=== PATIENT | male | born 1955 | race Caucasian/White ===

== ENCOUNTER → 2021-05-31 07:44 | Outpatient (CLI) | payer MEDICARE, SELFPAY ==
[2021-06-01 02:05] LABS: SARS-CoV-2 RNA PCR Negative
== END ==
PROVIDERS: PCP Family Medicine; Visit Provider Family Medicine
DX: Z20.822 Contact with and (suspected) exposure to COVID-19 (principal)
CPT/HCPCS: C9803; U0003; U0005

== ENCOUNTER 2021-08-12 01:00 | Day surgery (SDC) | payer MEDICARE, SELFPAY ==
[2021-08-01 11:03] VITALS: BMI 35.4
--- NOTE | 2021-08-11 13:25 | WPDANESEPP ---
Anes - Eval Pre Procedure Procedure: Operation Date: 08/12/21 08:00 Proposed Procedures p Screening Colonoscopy - Shayne Howard MD Date/Time: 08/11/21 13:25 Pre Op Diagnosis: hx of colon polyps Patient Data Age: 66 Gender: M Height: 1.75 m Weight: 109 kg Allergies Allergy/AdvReac Type Severity Reaction Status Date / Time penicillin V Allergy Unknown Unknown Verified 08/01/21 10:59 Penicillins Allergy Unknown Dermatitis Verified 08/01/21 10:59 Home Medications Medication Instructions Recorded Confirmed Type amlodipine 5 mg tablet 5 mg PO DAILY #90 tablet 11/17/20 08/01/21 Rx carvedilol 25 mg tablet 25 mg PO Q12H #180 tablet 11/17/20 08/01/21 Rx blood sugar diagnostic #100 ea 12/16/20 06/13/21 Rx blood-glucose meter #1 ea 12/16/20 06/13/21 Rx lancets 33 gauge #100 ea 12/16/20 06/13/21 Rx lancing device with lancets kit #1 ea 12/16/20 06/13/21 Rx atorvastatin 20 mg tablet 20 mg PO DAILY #90 tablet 03/08/21 08/01/21 Rx fluticasone propionate 50 2 spray INTRANASAL BID #16 ml 05/17/21 08/01/21 Rx mcg/actuation nasal spray,suspension irbesartan 300 1 tablet PO DAILY #90 tablet 06/06/21 08/01/21 Rx mg-hydrochlorothiazide 12.5 mg tablet metformin 500 mg tablet,extended 1,000 mg PO BID #360 tablet 06/06/21 08/01/21 Rx release 24 hr aspirin [Aspirin Low Dose] 81 mg PO DAILY 08/01/21 08/01/21 History multivit with min-folic acid 0.4 tablet PO DAILY 08/01/21 08/01/21 History [Adult One Daily Multivitamin] Patient hx anesthesia problems: none Family hx anesthesia problems: none Results Review: All pre-operative results and documents have been reviewed as part of the pre-operative evaluation. 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 pectoris Edema, peripheral Encounter for prostate cancer screening Encounter for wellness examination in adult Essential (primary) hypertension Exposure to COVID-19 virus Hypogonadism male Impacted cerumen, bilateral Lateral epicondylitis Mixed hyperlipidemia Nocturia Obstructive sleep apnea on CPAP Seasonal allergic rhinitis Seborrhea Tension headache, chronic Surgical History Surgical History History of heart artery stent Family History Family History Mother Hypertension, Onset Age: 91 Family history of cardiovascular disease Father Patient's father is , Onset Age: 87 Social History Social History (Updated 06/13/21 @ 13:51 by Elza Munson MA) Smoking status: Former smoker Tobacco type: cigarettes Alcohol intake: current Alcohol use details: rarely Substance use: never Substance use type: does not use Living arrangements: with family Spiritual care concerns: No Exam Day of Procedure 08/11/21 13:25
[2021-08-12 06:50] VITALS: BP 141/67; PULSE 61; RESP 18; TEMP 36.7; O2SAT 99; BMI 34.3
[2021-08-12 07:12] LABS: Glucose Point of Care 158 mg/dl (65-105)
--- NOTE | 2021-08-12 07:12 | WPDANESEFPP ---
Anes - Eval Final PreProcedure Day of Procedure 08/12/21 07:12 Patient weight: obese Heart: regular rate and rhythm Lungs: clear to auscultation Airway: Mallampati scale class II Neurological: alert and oriented Last oral intake: >/= 8 hours ASA classification: III Emergent: no Anesthetic plan: proceed Anesthesia type and monitoring: general GIVS and standard monitoring Results Review: All pre-operative results and documents have been reviewed as part of the pre-operative evaluation. Informed Consent: The patient's anesthetic plan and its attendant risks and benefits were discussed with the patient/family/POA. Questions were solicited and answers provided to the satisfaction of the patient/family/POA.
--- NOTE | 2021-08-12 07:18 | WPDGICN ---
Assessment and Plan Assessment and plan (1) History of colon polyps: Code(s): Z86.010 - Personal history of colonic polyps Status: Acute Assessment and Plan: Patient has a history of adenomatous colon polyps. Plan is for surveillance colonoscopy now and at 5 year intervals in the future. Further recommendations may be given after endoscopy. GI Consult Note Consult date/time: 08/12/21 07:18 HPI: Thom Tse is a 66 year old male Presents for screening colonoscopy. Patient has a history of recurrent colon polyps on several previous colonoscopies. Most recent colonoscopy 2018 revealed adenomatous colon polyps. Patient reports that his current weight appetite and bowel movements are normal. He denies abdominal pain. He has had no bleeding. Family history is noncontributory. Review of Systems Review of Systems: All systems reviewed & are unremarkable except as noted in HPI and below PMFSH Past Medical History Medical History (Updated 08/12/21 @ 07:19 by Shayne Howard MD) Adenomatous colon polyp BMI 35.0-35.9,adult Chronic right-sided low back pain without sciatica Controlled diabetes mellitus, without long-term current use of insulin Coronary artery disease without angina pectoris Edema, peripheral Encounter for prostate cancer screening Encounter for wellness examination in adult Essential (primary) hypertension Exposure to COVID-19 virus Hypogonadism male Impacted cerumen, bilateral Lateral epicondylitis Mixed hyperlipidemia Nocturia Obstructive sleep apnea on CPAP Seasonal allergic rhinitis Seborrhea Tension headache, chronic Surgical History Surgical History History of heart artery stent Family History Family History Mother Hypertension, Onset Age: 91 Family history of cardiovascular disease Father Patient's father is , Onset Age: 87 Social History Social History (Updated 06/13/21 @ 13:51 by Elza Munson MA) Smoking status: Former smoker Tobacco type: cigarettes Alcohol intake: current Alcohol use details: rarely Substance use: never Substance use type: does not use Living arrangements: with family Spiritual care concerns: No Meds Home Medications and Allergies Home Medications Medication Instructions Recorded Confirmed Type amlodipine 5 mg tablet 5 mg PO DAILY #90 tablet 11/17/20 08/01/21 Rx carvedilol 25 mg tablet 25 mg PO Q12H #180 tablet 11/17/20 08/01/21 Rx blood sugar diagnostic #100 ea 12/16/20 06/13/21 Rx blood-glucose meter #1 ea 12/16/20 06/13/21 Rx lancets 33 gauge #100 ea 12/16/20 06/13/21 Rx lancing device with lancets kit #1 ea 12/16/20 06/13/21 Rx atorvastatin 20 mg tablet 20 mg PO DAILY #90 tablet 03/08/21 08/01/21 Rx fluticasone propionate 50 2 spray INTRANASAL BID #16 ml 05/17/21 08/01/21 Rx mcg/actuation nasal spray,suspension irbesartan 300 1 tablet PO DAILY #90 tablet 06/06/21 08/01/21 Rx mg-hydrochlorothiazide 12.5 mg tablet metformin 500 mg tablet,extended 1,000 mg PO BID #360 tablet 06/06/21 08/01/21 Rx release 24 hr aspirin [Aspirin Low Dose] 81 mg PO DAILY 08/01/21 08/01/21 History multivit with min-folic acid 0.4 tablet PO DAILY 08/01/21 08/01/21 History [Adult One Daily Multivitamin] Allergies Allergy/AdvReac Type Severity Reaction Status Date / Time penicillin V Allergy Unknown Unknown Verified 08/12/21 06:59 Penicillins Allergy Unknown Dermatitis Verified 08/12/21 06:59 Vital Signs Vital Signs - 24 hr 08/12/21 06:50 Temperature 98.1 F Pulse Rate 61 Respiratory Rate 18 Blood Pressure 141/67 H Pulse Oximetry 99 Exam Narrative: Physical exam reveals patient to be alert. Vital signs stable. HEENT exam unremarkable. Patient is anicteric. Lungs are clear to auscultation and percussion. Heart is without murmur or extra sounds
[2021-08-12] MEDS: LACTATED RINGERS 1,000 ML 150 ML IV CONT (07:21)
[2021-08-12 08:28] VITALS: BP 137/68; PULSE 58; RESP 17; O2SAT 95
[2021-08-12 08:38] VITALS: BP 135/73; PULSE 56; RESP 19; O2SAT 95
[2021-08-12 08:48] VITALS: BP 134/88; PULSE 55; RESP 14; O2SAT 96
== END 2021-08-12 09:03 | disposition home or self-care (01) ==
PROVIDERS: PCP Family Medicine; Visit Provider Internal Medicine Gastroenterology
PROC: 0DJD8ZZ Inspection of Lower Intestinal Tract, Via Natural or Artificial Opening Endoscopic (ICD-10-PCS; CPT 45378; principal; 2021-08-12 08:00)
DX: Z12.11 Encounter for screening for malignant neoplasm of colon (principal); D12.2 Benign neoplasm of ascending colon; K64.8 Other hemorrhoids; I25.10 Atherosclerotic heart disease of native coronary artery without angina pectoris; I10 Essential (primary) hypertension; E78.2 Mixed hyperlipidemia; E11.9 Type 2 diabetes mellitus without complications; G47.33 Obstructive sleep apnea (adult) (pediatric); Z95.5 Presence of coronary angioplasty implant and graft; Z87.891 Personal history of nicotine dependence; E66.9 Obesity, unspecified; Z68.34 Body mass index [BMI] 34.0-34.9, adult; Z79.84 Long term (current) use of oral hypoglycemic drugs
CPT/HCPCS: 45385; 45381; 82948; 88305; J2704; J7120

== ENCOUNTER 2021-09-21 08:55 | Outpatient (CLI) | payer MEDICARE, SELFPAY ==
--- NOTE | ~2021-09-21 | XR_ITS ---
EXAMINATION: XR foot LT min 3V EXAM DATE: 09/21/2021 09:16 INDICATION: M72.2 - Plantar fascial fibromatosis, heel pain left side. TECHNIQUE: Left foot dorsoplantar, lateral and oblique projections obtained and reviewed. There is n o prior study for comparison. FINDINGS: Left metatarsal bones unremarkable. There is small calcaneal spur inferiorly. No perioste al reaction or band of sclerosis to suggest subacute stress fracture. There are no acute fractures or dislocations identified. There is no subcutaneous gas. The soft tissue is unremarkable. There ar e no radiopaque foreign bodies. IMPRESSION: Small left calcaneal inferior spur. Reviewed, dictated and finalized at location B.
== END 2021-09-21 08:56 | disposition home or self-care (01) ==
PROVIDERS: PCP Family Medicine; Visit Provider Family Medicine
DX: M72.2 Plantar fascial fibromatosis (principal); M76.62 Achilles tendinitis, left leg; M77.32 Calcaneal spur, left foot
CPT/HCPCS: 73630

== ENCOUNTER 2022-01-13 00:59 | Day surgery (SDC) | payer MEDICARE, SELFPAY ==
[2021-12-27 15:12] VITALS: BMI 33.8
[2022-01-13 07:43] VITALS: BP 148/68; PULSE 56; RESP 18; TEMP 36.2; O2SAT 99; BMI 32.8
[2022-01-13] MEDS: LACTATED RINGERS 1,000 ML 150 ML IV CONT (07:53)
[2022-01-13 07:58] LABS: Glucose Point of Care 110 mg/dl (65-105)
--- NOTE | 2022-01-13 08:06 | WPDANESEPPF ---
Anes - Initial Pre Proc Eval Procedure: Operation Date: 01/13/22 09:00 Proposed Procedures p Screening Colonoscopy - Shayne Howard MD Date/Time: 01/13/22 08:06 Surgeon: Shayne Howard MD Pre Op Diagnosis: colon polyps Patient Data Age: 66 Gender: M Height: 1.75 m Weight: 101 kg Last Vital Signs Temp 97.1 F L 01/13/22 07:43 Pulse 56 L 01/13/22 07:43 Resp 18 01/13/22 07:43 BP 148/68 H 01/13/22 07:43 Pulse Ox 99 01/13/22 07:43 O2 Del Method Room Air 01/13/22 07:43 Allergies Allergy/AdvReac Type Severity Reaction Status Date / Time penicillin V Allergy Unknown Unknown Verified 01/13/22 07:41 Penicillins Allergy Unknown Dermatitis Verified 01/13/22 07:41 Home Medications Medication Instructions Recorded Confirmed Type lancing device with lancets kit #1 ea 12/16/20 01/13/22 Rx (hopscout Lancing Device kit) atorvastatin 20 mg tablet 20 mg PO DAILY #90 tabs 03/08/21 01/13/22 Rx irbesartan 300 1 tablet PO DAILY #90 tabs 06/06/21 01/13/22 Rx mg-hydrochlorothiazide 12.5 mg tablet metformin 500 mg tablet,extended 1,000 mg PO BID #360 tabs 06/06/21 01/13/22 Rx release 24 hr aspirin 81 mg tablet,delayed 81 mg PO DAILY 08/01/21 01/13/22 History release (Charles Low Dose Aspirin) multivitamin with minerals-folic 1 tablet PO DAILY 08/01/21 01/13/22 History acid 0.4 mg tablet amlodipine 5 mg tablet 5 mg PO DAILY #90 tabs 09/02/21 01/13/22 Rx blood sugar diagnostic (InkblazersTouch #100 ea 09/07/21 01/13/22 Rx Verio test strips) carvedilol 25 mg tablet 25 mg PO Q12H #180 tabs 09/07/21 01/13/22 Rx lancets 33 gauge ([employer] Avanza Delica #100 ea 09/07/21 01/13/22 Rx Plus Lancet) meloxicam 15 mg tablet 15 mg PO DAILY PRN pain #30 tabs 09/21/21 01/13/22 Rx blood-glucose meter (OneTouch #1 ea 12/26/21 01/13/22 Rx Verio Meter) empagliflozin 25 mg tablet 25 mg PO DAILY #90 tabs 12/26/21 01/13/22 Rx (Jardiance) fluticasone propionate 50 2 spray intranasal BID PRN Allergy 12/27/21 01/13/22 History mcg/actuation nasal Symptoms spray,suspension (Flonase Allergy Relief) terbinafine HCl 250 mg tablet 250 mg PO DAILY 12/27/21 01/13/22 History Laboratory Tests 01/13/22 07:55 POC Capillary Glucose 110 mg/dl H mg/dl (65-105) Patient hx anesthesia problems: none Family hx anesthesia problems: none Results Review: All pre-operative results and documents have been reviewed as part of the pre-operative evaluation. [facility] Past Medical History Medical History (Updated 12/26/21 @ 09:57 by Nelly Otero NP) Achilles tendinitis of left lower extremity Adenomatous colon polyp Repeat colonoscopy 08/12/2021 with 2 large polyps of the ascending colon with recheck in 4 months with colonoscopy BMI 33.0-33.9,adult BMI 35.0-35.9,adult Chronic right-sided low back pain without sciatica Chronic sinusitis Controlled diabetes mellitus, without long-term current use of insulin Glucose 122 with hemoglobin A1c 6.4 on 11/28/2021. Coronary artery disease without angina pectoris Edema, peripheral Encounter for prostate cancer screening Encounter for wellness examination in adult Essential (primary) hypertension Exposure to COVID-19 virus Hypogonadism male Impacted cerumen, bilateral Lateral epicondylitis Mixed hyperlipidemia Total cholesterol 105, triglycerides 108, HDL 39, LDL 47 on 11/28/2021. Nocturia Obesity (BMI 30-39.9) Obstructive sleep apnea on CPAP Otitis externa of left ear Otitis externa, fungal, left ear Plantar fasciitis of left foot X-ray 09/21/2021 unremarkable except for small inferior calcaneal spur. PND (post-nasal drip) Seasonal allergic rhinitis Seborrhea Tension headache, chronic Surgical History Surgical History History of heart artery stent Family History Family History Mother Hypertension, Onset Age: 91 Family histo
--- NOTE | 2022-01-13 08:20 | PM.IMHP ---
H&P: HPI History of Present Illness Date/Time: 01/13/22 08:20 Chief Complaint: Colon polyps Narrative: this is a 66-year-old white male patient with a history of colon polyps in the past. Patient was found to have large sessile ascending colon polyp that was only partially removed at time of last endoscopy. Patient presents today for follow-up colonoscopy in removal of the remainder of this colon polyp patient's current weight appetite and bowel movements are normal. He denies abdominal pain. He has had no bleeding. Family history noncontributory. Review of Systems Review of Systems: Review of systems noncontributory. [facility] Past Medical History Medical History (Updated 12/26/21 @ 09:57 by Nelly Otero NP) Achilles tendinitis of left lower extremity Adenomatous colon polyp Repeat colonoscopy 08/12/2021 with 2 large polyps of the ascending colon with recheck in 4 months with colonoscopy BMI 33.0-33.9,adult BMI 35.0-35.9,adult Chronic right-sided low back pain without sciatica Chronic sinusitis Controlled diabetes mellitus, without long-term current use of insulin Glucose 122 with hemoglobin A1c 6.4 on 11/28/2021. Coronary artery disease without angina pectoris Edema, peripheral Encounter for prostate cancer screening Encounter for wellness examination in adult Essential (primary) hypertension Exposure to COVID-19 virus Hypogonadism male Impacted cerumen, bilateral Lateral epicondylitis Mixed hyperlipidemia Total cholesterol 105, triglycerides 108, HDL 39, LDL 47 on 11/28/2021. Nocturia Obesity (BMI 30-39.9) Obstructive sleep apnea on CPAP Otitis externa of left ear Otitis externa, fungal, left ear Plantar fasciitis of left foot X-ray 09/21/2021 unremarkable except for small inferior calcaneal spur. PND (post-nasal drip) Seasonal allergic rhinitis Seborrhea Tension headache, chronic Surgical History Surgical History History of heart artery stent Family History Family History Mother Hypertension, Onset Age: 91 Family history of cardiovascular disease Father Patient's father is , Onset Age: 87 Social History Social History Smoking status: Former smoker Tobacco type: cigarettes Alcohol intake: current Alcohol use details: social Substance use: never Substance use type: does not use Living arrangements: with family Spiritual care concerns: No Meds Home Medications and Allergies Home Medications Medication Instructions Recorded Confirmed Type lancing device with lancets kit #1 ea 12/16/20 01/13/22 Rx (Recommendo Lancing Device kit) atorvastatin 20 mg tablet 20 mg PO DAILY #90 tabs 03/08/21 01/13/22 Rx irbesartan 300 1 tablet PO DAILY #90 tabs 06/06/21 01/13/22 Rx mg-hydrochlorothiazide 12.5 mg tablet metformin 500 mg tablet,extended 1,000 mg PO BID #360 tabs 06/06/21 01/13/22 Rx release 24 hr aspirin 81 mg tablet,delayed 81 mg PO DAILY 08/01/21 01/13/22 History release (Charles Low Dose Aspirin) multivitamin with minerals-folic 1 tablet PO DAILY 08/01/21 01/13/22 History acid 0.4 mg tablet amlodipine 5 mg tablet 5 mg PO DAILY #90 tabs 09/02/21 01/13/22 Rx blood sugar diagnostic (BriggoTouch #100 ea 09/07/21 01/13/22 Rx Verio test strips) carvedilol 25 mg tablet 25 mg PO Q12H #180 tabs 09/07/21 01/13/22 Rx lancets 33 gauge ([employer] Delica #100 ea 09/07/21 01/13/22 Rx Plus Lancet) meloxicam 15 mg tablet 15 mg PO DAILY PRN pain #30 tabs 09/21/21 01/13/22 Rx blood-glucose meter (BriggoTouch #1 ea 12/26/21 01/13/22 Rx Verio Meter) empagliflozin 25 mg tablet 25 mg PO DAILY #90 tabs 12/26/21 01/13/22 Rx (Jardiance) fluticasone propionate 50 2 spray intranasal BID PRN Allergy 12/27/21 01/13/22 History mcg/actuation nasal Symptoms spray,suspension (Flonase A
[2022-01-13] MEDS: SIMETHICONE ORAL SUSPENSION 20 MG/0.3 ML 30 ML BOTTLE 0.6 ML IRRIGATION (09:12)
[2022-01-13 09:30] VITALS: BP 99/50; PULSE 58; RESP 18; O2SAT 97
[2022-01-13 09:40] VITALS: BP 119/68; PULSE 51; RESP 17; O2SAT 97
[2022-01-13 09:50] VITALS: BP 129/63; PULSE 56; RESP 21; O2SAT 97
== END 2022-01-13 09:55 | disposition home or self-care (01) ==
PROVIDERS: PCP Family Medicine; Visit Provider Internal Medicine Gastroenterology
PROC: 0DJD8ZZ Inspection of Lower Intestinal Tract, Via Natural or Artificial Opening Endoscopic (ICD-10-PCS; CPT 45378; principal; 2022-01-13 09:00)
DX: Z12.11 Encounter for screening for malignant neoplasm of colon (principal); D12.2 Benign neoplasm of ascending colon; K62.1 Rectal polyp; K64.8 Other hemorrhoids; I25.118 Atherosclerotic heart disease of native coronary artery with other forms of angina pectoris; R60.0 Localized edema; I10 Essential (primary) hypertension; Z86.16 Personal history of COVID-19; E78.2 Mixed hyperlipidemia; G47.33 Obstructive sleep apnea (adult) (pediatric); Z95.5 Presence of coronary angioplasty implant and graft; Z87.891 Personal history of nicotine dependence; Z79.82 Long term (current) use of aspirin; Z79.84 Long term (current) use of oral hypoglycemic drugs; E66.9 Obesity, unspecified; Z68.32 Body mass index [BMI] 32.0-32.9, adult
CPT/HCPCS: 45385; 82948; 88305; J2704; J7120

== ENCOUNTER 2023-03-02 00:35 | Day surgery (SDC) | payer MEDICARE, SELFPAY ==
[2023-02-14 14:43] VITALS: BMI 34.0
[2023-03-02 06:49] VITALS: BP 133/64; PULSE 59; RESP 18; TEMP 36.3; O2SAT 97; BMI 33.3
[2023-03-02 07:03] LABS: Glucose Point of Care 124 mg/dl (65-105)
[2023-03-02] MEDS: LACTATED RINGERS 1,000 ML 150 ML IV CONT (07:11)
--- NOTE | 2023-03-02 07:19 | PM.HPGS ---
History of Present Illness History of Present Illness Consent: Risks, benefits, and alternatives have been discussed and questions answered. Patient agrees to proceed with procedure. Chief complaint: hx colon polyps Narrative: Thom Tse is a 67 year old male Presents for colonoscopy. Patient has a history of rather large colon polyp removed from the colon approximately year and half ago. Follow-up endoscopy revealed evidence for complete removal. Patient presents today for surveillance colonoscopy. Patient reports his current weight appetite are normal. He does have some bowel urgency. He denies any blood in his stools. Patient denies abdominal pain. Patient reports he recently was identified as having an asymptomatic gallstone. Review of Systems Review of Systems: Review of systems noncontributory. [facility] Past Medical History Medical History (Updated 01/09/23 @ 09:32 by Morris Barnes MD) Achilles tendinitis of left lower extremity Adenomatous colon polyp Repeat colonoscopy 08/12/2021 with 2 large polyps of the ascending colon with recheck in 4 months with colonoscopy.Two polyps on colonoscopy 01/13/2022 with recheck in 1 year. BMI 33.0-33.9,adult BMI 34.0-34.9,adult BMI 35.0-35.9,adult Chronic right-sided low back pain without sciatica Chronic sinusitis Controlled diabetes mellitus, without long-term current use of insulin Glucose 122 with hemoglobin A1c 6.4 on 11/28/2021. Glucose 136 with hemoglobin A1c 6.4 on 12/29/2022. Coronary artery disease without angina pectoris COVID-19 (06/14/22) tested positive 06/15/2022. Edema, peripheral Encounter for prostate cancer screening Encounter for wellness examination in adult Essential (primary) hypertension Exposure to COVID-19 virus Gallstones Hypogonadism male Impacted cerumen, bilateral Lateral epicondylitis Mixed hyperlipidemia Total cholesterol 105, triglycerides 108, HDL 39, LDL 47 on 11/28/2021. total cholesterol 103, HDL 35, triglycerides 113, LDL 48 on 12/29/2022. Neoplasm of uncertain behavior of lip Nocturia Obesity (BMI 30-39.9) Obstructive sleep apnea on CPAP Otitis externa of left ear Otitis externa, fungal, left ear Plantar fasciitis of left foot X-ray 09/21/2021 unremarkable except for small inferior calcaneal spur. PND (post-nasal drip) Screening for diabetic retinopathy no retinopathy 09/29/2022. Seasonal allergic rhinitis Seborrhea Tension headache, chronic Surgical History Surgical History History of heart artery stent Family History Family History Mother Hypertension, Onset Age: 91 Family history of cardiovascular disease Father Patient's father is , Onset Age: 87 Social History Social History Smoking status: Former smoker Tobacco type: cigarettes Alcohol intake: never Substance use: never Substance use type: does not use Lack of Transportation: No Lack of Food: Never True Current Housing: I Have Housing Concerned About Future Housing: No Difficulty Paying Gas/Electric Bills: No Difficulty Paying for Meds: No Currently Unemployed: No Education: Trade/Vocational Certificate Difficulty w/ Childcare or Family Care: No Living arrangements: with family Spiritual care concerns: No Meds Home Medications and Allergies Home Medications Medication Instructions Recorded Confirmed Type aspirin 81 mg tablet,delayed 81 mg PO DAILY 08/01/21 02/14/23 History release (Charles Low Dose Aspirin) multivitamin with minerals-folic 1 tablet PO DAILY 08/01/21 02/14/23 History acid 0.4 mg tablet blood-glucose meter (OneTouch #1 ea 12/26/21 01/09/23 Rx Verio Meter) fluticasone propionate 50 2 spray intranasal BID PRN Allergy 12/27/21 02/14/23 History mcg/actuation nasal Symptoms spray,suspension (Fl
--- NOTE | 2023-03-02 07:27 | WPDANESEPPF ---
Anes - Initial Pre Proc Eval Procedure: Operation Date: 03/02/23 08:00 Proposed Procedures p Colonoscopy - Shayne Howard MD Date/Time: 03/02/23 07:27 Surgeon: Shyane Howard MD Pre Op Diagnosis: hx colon polyps Patient Data Age: 67 Gender: M Height: 1.75 m Weight: 102.3 kg Last Vital Signs Temp 97.3 F L 03/02/23 06:49 Pulse 59 L 03/02/23 06:49 Resp 18 03/02/23 06:49 BP 133/64 03/02/23 06:49 Pulse Ox 97 03/02/23 06:49 O2 Del Method Room Air 03/02/23 06:49 Allergies Allergy/AdvReac Type Severity Reaction Status Date / Time No Known Allergies Allergy Verified 02/14/23 14:38 Home Medications Medication Instructions Recorded Confirmed Type aspirin 81 mg tablet,delayed 81 mg PO DAILY 08/01/21 02/14/23 History release (Charles Low Dose Aspirin) multivitamin with minerals-folic 1 tablet PO DAILY 08/01/21 02/14/23 History acid 0.4 mg tablet blood-glucose meter (Plastic LogicTouch #1 ea 12/26/21 01/09/23 Rx Verio Meter) fluticasone propionate 50 2 spray intranasal BID PRN Allergy 12/27/21 02/14/23 History mcg/actuation nasal Symptoms spray,suspension (Flonase Allergy Relief) blood sugar diagnostic (OneTouch #100 ea 02/17/22 01/09/23 Rx Verio test strips) lancets 33 gauge ([employer] #100 ea 02/17/22 01/09/23 Rx Plus Lancet) lancing device with lancets kit #1 ea 02/17/22 01/09/23 Rx (Zeetl [employer] Lancing Device kit) amlodipine 5 mg tablet 5 mg PO DAILY #90 tabs 07/03/22 02/14/23 Rx carvedilol 25 mg tablet 25 mg PO Q12H #180 tabs 07/03/22 02/14/23 Rx irbesartan 300 1 tablet PO DAILY #90 tabs 11/27/22 02/14/23 Rx mg-hydrochlorothiazide 12.5 mg tablet atorvastatin 20 mg tablet 20 mg PO DAILY #90 tabs 12/25/22 02/14/23 Rx metformin 500 mg tablet,extended 1,000 mg PO BID #360 tabs 12/25/22 02/14/23 Rx release 24 hr empagliflozin 25 mg tablet 25 mg PO DAILY #90 tabs 01/02/23 02/14/23 Rx (Jardiance) sodium,potassium,mag sulfates 17.5 See Rx Instructions PO .COMPLEX 01/17/23 Rx gram-3.13 gram-1.6 gram oral soln #354 mL (Suprep Bowel Prep Kit) terbinafine HCl 250 mg tablet 250 mg PO DAILY 02/14/23 02/14/23 History Laboratory Tests 03/02/23 06:54 POC Capillary Glucose 124 H mg/dl (65-105) Patient hx anesthesia problems: none Family hx anesthesia problems: none Results Review: All pre-operative results and documents have been reviewed as part of the pre-operative evaluation. [facility] Past Medical History Medical History (Updated 01/09/23 @ 09:32 by Morris Barnes MD) Achilles tendinitis of left lower extremity Adenomatous colon polyp Repeat colonoscopy 08/12/2021 with 2 large polyps of the ascending colon with recheck in 4 months with colonoscopy.Two polyps on colonoscopy 01/13/2022 with recheck in 1 year. BMI 33.0-33.9,adult BMI 34.0-34.9,adult BMI 35.0-35.9,adult Chronic right-sided low back pain without sciatica Chronic sinusitis Controlled diabetes mellitus, without long-term current use of insulin Glucose 122 with hemoglobin A1c 6.4 on 11/28/2021. Glucose 136 with hemoglobin A1c 6.4 on 12/29/2022. Coronary artery disease without angina pectoris COVID-19 (06/14/22) tested positive 06/15/2022. Edema, peripheral Encounter for prostate cancer screening Encounter for wellness examination in adult Essential (primary) hypertension Exposure to COVID-19 virus Gallstones Hypogonadism male Impacted cerumen, bilateral Lateral epicondylitis Mixed hyperlipidemia Total cholesterol 105, triglycerides 108, HDL 39, LDL 47 on 11/28/2021. total cholesterol 103, HDL 35, triglycerides 113, LDL 48 on 12/29/2022. Neoplasm of uncertain behavior of lip Nocturia Obesity (BMI 30-39.9) Obstructive sleep apnea on CPAP Otitis externa of left ear Otitis externa, fungal, left ear Plantar fasciitis of left foot X-ray 09/21/2021 unremarkable except for small inferior calcaneal spur. PND (post-nasal drip) Screening for diabetic
[2023-03-02] MEDS: SIMETHICONE ORAL SUSPENSION 20 MG/0.3 ML 30 ML BOTTLE 0.6 ML IRRIGATION (08:02)
[2023-03-02 08:29] VITALS: BP 87/41; PULSE 61; RESP 26; O2SAT 97
[2023-03-02 08:39] VITALS: BP 97/45; PULSE 62; RESP 17; O2SAT 97
[2023-03-02 08:49] VITALS: BP 107/48; PULSE 55; RESP 22; O2SAT 97
== END 2023-03-02 08:56 | disposition home or self-care (01) ==
PROVIDERS: PCP Family Medicine; Visit Provider Internal Medicine Gastroenterology
PROC: 0DJD8ZZ Inspection of Lower Intestinal Tract, Via Natural or Artificial Opening Endoscopic (ICD-10-PCS; CPT 45378; principal; 2023-03-02 08:00)
DX: Z12.11 Encounter for screening for malignant neoplasm of colon (principal); D12.2 Benign neoplasm of ascending colon; K64.8 Other hemorrhoids; K57.30 Diverticulosis of large intestine without perforation or abscess without bleeding; E11.9 Type 2 diabetes mellitus without complications; I25.10 Atherosclerotic heart disease of native coronary artery without angina pectoris; I10 Essential (primary) hypertension; E78.2 Mixed hyperlipidemia; G47.33 Obstructive sleep apnea (adult) (pediatric); E66.9 Obesity, unspecified; Z68.33 Body mass index [BMI] 33.0-33.9, adult; Z95.5 Presence of coronary angioplasty implant and graft; Z79.82 Long term (current) use of aspirin; Z79.84 Long term (current) use of oral hypoglycemic drugs; Z87.891 Personal history of nicotine dependence
CPT/HCPCS: 45381; 45380; 45385; 82948; 88305; J2704; J7120

== ENCOUNTER 2023-05-25 00:17 | Day surgery (SDC) | payer MEDICARE, SELFPAY ==
[2023-05-10 15:30] VITALS: BMI 33.3
--- NOTE | 2023-05-23 11:26 | SUR.PREOP ---
Patient called regarding upcoming procedure. Reviewed preop instructions, appointment times, and procedure prep.
--- NOTE | 2023-05-23 11:27 | SUR.PREOP ---
Patient called regarding upcoming procedure. Reviewed preop instructions, appointment times, and procedure prep.
[2023-05-25 06:28] VITALS: BP 149/70; PULSE 64; RESP 18; TEMP 36.3; O2SAT 96; BMI 33.8
--- NOTE | 2023-05-25 06:42 | WPDANESEPPF ---
Anes - Initial Pre Proc Eval Procedure: Operation Date: 05/25/23 07:30 Proposed Procedures p Colonoscopy - Shayne Howard MD Date/Time: 05/25/23 06:42 Surgeon: Shayne Howard MD Pre Op Diagnosis: Personal h/o colon polyps Patient Data Age: 68 Gender: M Height: 1.75 m Weight: 104 kg Last Vital Signs Temp 36.3 C L 05/25/23 06:28 Pulse 64 05/25/23 06:28 Resp 18 05/25/23 06:28 BP 149/70 H 05/25/23 06:28 Pulse Ox 96 05/25/23 06:28 O2 Del Method Room Air 05/25/23 06:28 Allergies Allergy/AdvReac Type Severity Reaction Status Date / Time No Known Allergies Allergy Verified 05/22/23 11:25 Home Medications Medication Instructions Recorded Confirmed Type aspirin 81 mg tablet,delayed 81 mg PO DAILY 08/01/21 05/22/23 History release (Charles Low Dose Aspirin) multivitamin with minerals-folic 1 tablet PO DAILY 08/01/21 05/22/23 History acid 0.4 mg tablet blood-glucose meter (ipviveTouch #1 ea 12/26/21 05/22/23 Rx Verio Meter) fluticasone propionate 50 2 spray intranasal BID PRN Allergy 12/27/21 05/22/23 History mcg/actuation nasal Symptoms spray,suspension (Flonase Allergy Relief) blood sugar diagnostic (OneTouch #100 ea 02/17/22 05/22/23 Rx Verio test strips) lancets 33 gauge (SynergEyes #100 ea 02/17/22 05/22/23 Rx Plus Lancet) lancing device with lancets kit #1 ea 02/17/22 05/22/23 Rx ([employer] Lancing Device kit) irbesartan 300 1 tablet PO DAILY #90 tabs 11/27/22 05/22/23 Rx mg-hydrochlorothiazide 12.5 mg tablet atorvastatin 20 mg tablet 20 mg PO DAILY #90 tabs 12/25/22 05/22/23 Rx metformin 500 mg tablet,extended 1,000 mg PO BID #360 tabs 12/25/22 05/22/23 Rx release 24 hr empagliflozin 25 mg tablet 25 mg PO DAILY #90 tabs 01/02/23 05/22/23 Rx (Jardiance) terbinafine HCl 250 mg tablet 250 mg PO DAILY 02/14/23 05/22/23 History sodium,potassium,mag sulfates 17.5 See Rx Instructions PO .COMPLEX 03/07/23 05/22/23 Rx gram-3.13 gram-1.6 gram oral soln #354 mL (Suprep Bowel Prep Kit) amlodipine 5 mg tablet 5 mg PO DAILY #90 tabs 03/19/23 05/25/23 Rx carvedilol 25 mg tablet 25 mg PO Q12H #180 tabs 03/19/23 05/25/23 Rx mupirocin 2 % topical ointment 1 applic topical BID #15 grams 05/22/23 05/25/23 Rx Patient hx anesthesia problems: none Family hx anesthesia problems: none Results Review: All pre-operative results and documents have been reviewed as part of the pre-operative evaluation. [facility] Past Medical History Medical History Achilles tendinitis of left lower extremity Adenomatous colon polyp Repeat colonoscopy 08/12/2021 with 2 large polyps of the ascending colon with recheck in 4 months with colonoscopy.Two polyps on colonoscopy 01/13/2022 with recheck in 1 year.Colonoscopy 03/02/2023 with 2 polyps , tubular adenoma, recheck in 3 months. Colonoscopy 03/02/2023 with 2 tubular adenoma of the ascending colon. ascending colon with recheck in 3-4 months. BMI 33.0-33.9,adult BMI 34.0-34.9,adult BMI 35.0-35.9,adult Chronic right-sided low back pain without sciatica Chronic sinusitis Controlled diabetes mellitus, without long-term current use of insulin Glucose 122 with hemoglobin A1c 6.4 on 11/28/2021. Glucose 136 with hemoglobin A1c 6.4 on 12/29/2022. Coronary artery disease without angina pectoris COVID-19 (06/14/22) tested positive 06/15/2022. Edema, peripheral Encounter for prostate cancer screening Encounter for wellness examination in adult Essential (primary) hypertension Exposure to COVID-19 virus Gallstones Hypogonadism male Impacted cerumen, bilateral Lateral epicondylitis Mixed hyperlipidemia Total cholesterol 105, triglycerides 108, HDL 39, LDL 47 on 11/28/2021. total cholesterol 103, HDL 35, triglycerides 113, LDL 48 on 12/29/2022. Neoplasm of uncertain behavior of lip Nocturia Obesity (BMI 30-39.9) Obstructive sleep apnea on CPAP Otitis design engineering specialist
[2023-05-25 06:46] LABS: Glucose Point of Care 113 mg/dl (65-105)
[2023-05-25] MEDS: LACTATED RINGERS 1,000 ML 150 ML IV CONT (06:46)
--- NOTE | 2023-05-25 07:20 | PM.HPGS ---
History of Present Illness History of Present Illness Consent: Risks, benefits, and alternatives have been discussed and questions answered. Patient agrees to proceed with procedure. Chief complaint: Personal h/o colon polyps Narrative: Thom Tse is a 68 year old male Presents for colonoscopy. In February was found to have a rather large sessile tubular adenoma of the ascending colon. This was not able to be totally excised. Patient returns at this time for excision of the remainder of this benign colon polyp. Patient denies any complaints at present. His weight appetite and bowel movements are normal. He has noticed no bleeding. Review of Systems Review of Systems: Review of systems noncontributory. [facility] Past Medical History Medical History Achilles tendinitis of left lower extremity Adenomatous colon polyp Repeat colonoscopy 08/12/2021 with 2 large polyps of the ascending colon with recheck in 4 months with colonoscopy.Two polyps on colonoscopy 01/13/2022 with recheck in 1 year.Colonoscopy 03/02/2023 with 2 polyps , tubular adenoma, recheck in 3 months. Colonoscopy 03/02/2023 with 2 tubular adenoma of the ascending colon. ascending colon with recheck in 3-4 months. BMI 33.0-33.9,adult BMI 34.0-34.9,adult BMI 35.0-35.9,adult Chronic right-sided low back pain without sciatica Chronic sinusitis Controlled diabetes mellitus, without long-term current use of insulin Glucose 122 with hemoglobin A1c 6.4 on 11/28/2021. Glucose 136 with hemoglobin A1c 6.4 on 12/29/2022. Coronary artery disease without angina pectoris COVID-19 (06/14/22) tested positive 06/15/2022. Edema, peripheral Encounter for prostate cancer screening Encounter for wellness examination in adult Essential (primary) hypertension Exposure to COVID-19 virus Gallstones Hypogonadism male Impacted cerumen, bilateral Lateral epicondylitis Mixed hyperlipidemia Total cholesterol 105, triglycerides 108, HDL 39, LDL 47 on 11/28/2021. total cholesterol 103, HDL 35, triglycerides 113, LDL 48 on 12/29/2022. Neoplasm of uncertain behavior of lip Nocturia Obesity (BMI 30-39.9) Obstructive sleep apnea on CPAP Otitis externa of left ear Otitis externa, fungal, left ear Paronychia of great toe Plantar fasciitis of left foot X-ray 09/21/2021 unremarkable except for small inferior calcaneal spur. PND (post-nasal drip) Screening for diabetic retinopathy no retinopathy 09/29/2022. Seasonal allergic rhinitis Seborrhea Tension headache, chronic Surgical History Surgical History History of heart artery stent Family History Family History Mother Hypertension, Onset Age: 91 Family history of cardiovascular disease Father Patient's father is , Onset Age: 87 Social History Social History Smoking status: Former smoker Tobacco type: cigarettes Alcohol intake: never Substance use: never Substance use type: does not use Lack of Transportation: No Lack of Food: Never True Current Housing: I Have Housing Concerned About Future Housing: No Difficulty Paying Gas/Electric Bills: No Difficulty Paying for Meds: No Currently Unemployed: No Education: Trade/Vocational Certificate Difficulty w/ Childcare or Family Care: No Living arrangements: with family Spiritual care concerns: No Meds Home Medications and Allergies Home Medications Medication Instructions Recorded Confirmed Type aspirin 81 mg tablet,delayed 81 mg PO DAILY 08/01/21 05/22/23 History release (Charles Low Dose Aspirin) multivitamin with minerals-folic 1 tablet PO DAILY 08/01/21 05/22/23 History acid 0.4 mg tablet blood-glucose meter (OneTouch #1 ea 12/26/21 05/22/23 Rx Verio Meter) fluticasone propionate 50 2 s
[2023-05-25] MEDS: SIMETHICONE ORAL SUSPENSION 20 MG/0.3 ML 30 ML BOTTLE 0.6 ML IRRIGATION (07:36)
[2023-05-25 08:11] VITALS: BP 103/49; PULSE 68; RESP 14; O2SAT 94
[2023-05-25 08:21] VITALS: BP 111/50; PULSE 65; RESP 20; O2SAT 96
[2023-05-25 08:27] VITALS: O2SAT 97
[2023-05-25 08:31] VITALS: BP 112/64; PULSE 61; RESP 20; O2SAT 98
== END 2023-05-25 08:44 | disposition home or self-care (01) ==
PROVIDERS: PCP Family Medicine; Visit Provider Internal Medicine Gastroenterology
PROC: 0DJD8ZZ Inspection of Lower Intestinal Tract, Via Natural or Artificial Opening Endoscopic (ICD-10-PCS; CPT 45378; principal; 2023-05-25 07:30)
DX: Z12.11 Encounter for screening for malignant neoplasm of colon (principal); D12.2 Benign neoplasm of ascending colon; D12.5 Benign neoplasm of sigmoid colon; K63.5 Polyp of colon; K64.1 Second degree hemorrhoids; I25.10 Atherosclerotic heart disease of native coronary artery without angina pectoris; E11.9 Type 2 diabetes mellitus without complications; E78.2 Mixed hyperlipidemia; G47.33 Obstructive sleep apnea (adult) (pediatric); Z95.5 Presence of coronary angioplasty implant and graft; Z87.891 Personal history of nicotine dependence; E66.9 Obesity, unspecified; Z68.33 Body mass index [BMI] 33.0-33.9, adult; Z79.82 Long term (current) use of aspirin; Z79.84 Long term (current) use of oral hypoglycemic drugs
CPT/HCPCS: 45381; 45385; 82948; 88305; J2001; J2704; J7120

== ENCOUNTER → 2023-08-15 11:26 | Outpatient (CLI) | payer MEDICARE, SELFPAY ==
--- NOTE | ~2023-08-15 | XR_ITS ---
EXAMINATION: XR hip RT 2V w AP pelvis DATE: 08/15/2023 11:52 INDICATION: Right hip pain. TECHNIQUE: An anteroposterior view of the pelvis on 2 radiographs and 2 views of right hip were obtai jl. COMPARISON: None. FINDINGS: There is lumbar levocurvature and mild spondylosis. No fracture. There is mild osteoarthrit is of the hips. IMPRESSION: 1. Mild osteoarthritis of the hips. Reviewed, dictated and finalized at location E. OAT SPRAYER
--- NOTE | ~2023-08-15 | XR_ITS ---
EXAMINATION: XR lumbar spine min 4V DATE: 08/15/2023 11:52 INDICATION: Low back pain. TECHNIQUE: 5 views of lumbar spine were obtained. COMPARISON: None. FINDINGS: There is 4 degrees levocurvature of lumbar spine. There is 3 mm anterolisthesis of L4 on L5 . There is a chronic compression fracture of L3 with less than 1/5 loss of height. There is mildly de creased disc height at L4-L5. There is multilevel facet joint osteoarthritis, severe bilaterally at L 4-L5 and L5-S1. IMPRESSION: 1. Mild lumbar spondylosis. Reviewed, dictated and finalized at location E. ETING RESEARCH COORDINATOR IMPRESSION: 1. Mild lumbar spondylosis.
== END ==
PROVIDERS: PCP Family Medicine; Visit Provider Family Medicine
DX: M16.0 Bilateral primary osteoarthritis of hip (principal); M43.06 Spondylolysis, lumbar region
CPT/HCPCS: 72110; 73502

== ENCOUNTER 2023-10-02 10:00 | Outpatient (RCR) | payer MEDICARE, SELFPAY ==
--- NOTE | 2023-09-05 13:27 | OPREHPOC ---
Outpatient Therapy Plan of Care This is a Multidisciplinary Plan of Care that may contain components documented by all disciplines (PT, OT, and ST.) PT Problem 1 PT Problem #1 Knowledge Deficit PT Goal 1 Goal Pt to be IND with issued HEP Target Visit 8 PT Problem 2 PT Problem #2 Pain PT Goal 1 Goal Pt to report low back pain no greater than 3/10 in the last week. Target Visit 8 PT Goal 2 Goal Pt to report 75% improvement in overall symptoms. Target Visit 8 PT Problem 3 PT Problem #3 Impaired Sensation PT Goal 1 Goal Pt to decline radicular symptoms in the last week. Target Visit 8 PT Problem 4 PT Problem #4 Impaired Functional Mobil PT Goal 1 Goal Pt to demonstrates a functional lift and carry with 20lb from ground level. Target Visit 8
--- NOTE | 2023-09-05 13:30 | PTOPEVAL1 ---
Assessment and note entered by Naomi Welch, PT, DPT Evaluation Information Assessment Status Evaluation Diagnosis R sided lumbar pain, meghna hip pain Subjective Information Pt reports chronic hip and low back pain, that has progressed in intensity in the last month or so. 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 Pt states he has pain initially upon standing after sitting, when standing up straight after bending over to pick something up, and after working in the yard for a while. He declines any issues sleeping d/t his back. He reports a tightness in his low back R>L. He states ice and heat help. Reported Pain Level Pain Score 2: Self Report Assessment PT Clinical Summary Thom presents to therapy today for his initial evaluation with a diagnosis of R sided low back pain. Today he demonstrates a minor decrease in lumbar ROM, with good strength throughout. He demonstrates tightness and soft tissue restrictions throughout his hips and low back. He demonstrates good body mechanics at times but would benefits from more education on lifting mechanics. Skilled therapy services are indicated to manage pain, improve mobility, and to return to PLOF. Plan of Care Interventions Electrical Stimulation,Gait Training,Hot Pack/Cold Pack,Manual Therapy,Mechanical Traction,Neuro Re- education,Patient/Caregiver Educati,Therapeutic Activities,Therapeutic Exercise PT Services Indicated Yes Treatment Frequency and 2x/wk for 8 visits Duration These treatments will address the objective and functional deficits as defined above. The patient will be advanced safely and appropriately in order for the patient to progress towards his/her prior level of function. Additional exercises will be introduced and as well as a comprehensive home exercise program upon discharge, if needed, ?to ensure carryover of functional gains achieved in the clinic. This treatment plan has been reviewed and agreement upon by the patient.
--- NOTE | 2023-10-02 10:39 | PTOPDC ---
Assessment and note entered by Naomi Welch, PT, DPT Evaluation Information Assessment Status Discharge Diagnosis R sided lumbar pain, meghna hip pain Subjective Information Pt states his back is doing great. He states he is getting less pain in the morning when he first wakes up. He states he has become much more aware of how to move his body, he is not perfect but has learned to self correct. Reported Pain Level Pain Score 0: Self Report Assessment PT Clinical Summary Thom presents to therapy today for his progress report following 8 visits of skilled therapy to treat his diagnosis of R sided low back pain. Today he demonstrates improved lumbar ROM, decreased pain reports, improve body awareness, and decreased radicular symptoms. He has met or progressed well towards his therapy goals and no longer requires skilled services. He will be discharged at this time. Plan of Care PT Services Indicated No
== END 2023-10-02 11:10 | disposition home or self-care (01) ==
LOC: ANHGOSHPT 10:00
PROVIDERS: PCP Family Medicine; Visit Provider Family Medicine
DX: M54.41 Lumbago with sciatica, right side (principal); M25.551 Pain in right hip; G89.29 Other chronic pain
CPT/HCPCS: 97110; 97161; 97530

== ENCOUNTER 2024-06-03 09:01 | Outpatient (CLI) | payer MEDICARE, SELFPAY | END 2024-06-03 09:02 | disposition home or self-care (01) | PROVIDERS: PCP Family Medicine; Visit Provider Otolaryngology | DX: H90.3 Sensorineural hearing loss, bilateral (principal); H61.23 Impacted cerumen, bilateral; J01.01 Acute recurrent maxillary sinusitis | CPT/HCPCS: 92557; 92567 ==

== ENCOUNTER 2024-07-15 08:15 | Day surgery (SDC) | payer MEDICARE, SELFPAY ==
[2024-06-09 08:10] VITALS: BMI 35.0
[2024-06-24 12:22] VITALS: BMI 34.8
--- NOTE | ~2024-07-15 | XR_ITS ---
INTRAOPERATIVE FLUOROSCOPY: CLINICAL HISTORY: 69 years old Male; DIAG/PROG MIGUEL MEDIAL BRANCH NERVE BLK L2,L3,L4,L5 PROCEDURE COMMENTS: Limited intraoperative fluoroscopy of the lumbar spine was performed. CUMULATIVE DOSE: 13 mGy FLUOROSCOPY TIME: 31 seconds FINDINGS/IMPRESSION: Please refer to operative note for further details. Reviewed, dictated and finalized at location [facility]
--- NOTE | 2024-07-15 06:28 | PM.HPGS ---
History of Present Illness History of Present Illness Consent: Risks, benefits, and alternatives have been discussed and questions answered. Patient agrees to proceed with procedure. Chief complaint: lumbosacral spondylosis, chronic low back pain Narrative: Thom Tse is a 69 year old male with chronic, recalcitrant and disabling bilateral lumbosacral back pain secondary to degenerative spondylosis with failure to respond to aggressive conservative measures including PT, oral and topical analgesics, opioid and nonopioid analgesics, rest, time and activity/behavioral modification over the past 1-2 years who presents for diagnostic/prognostic medial branch blocks of the bilateral L2, L3, L4, L5 medial branches/dorsal ramus(#1) addressing the bilateral L3-4, L4-5, L5-S1 facet joints under fluoroscopic guidance and with contrast control. Review of Systems Review of Systems: Patient denies any new infectious, allergic, cardiopulmonary, neurologic or constitutional symptoms or changes in activity tolerance or exercise capacity including new or progressive SOB/THRASHER, peripheral edema, productive cough, dysuria, nausea/vomiting, diarrhea, weight change, fevers/chills/night sweats, new or progressive neurologic deficit, cognitive or mood changes since last seen, except as documented in the HPI. All systems reviewed & are unremarkable except as noted in HPI and below PMFSH Past Medical History Medical History Umbilical hernia without obstruction and without gangrene chronic 1 cm umbilical hernia Anxiety Skin tags, multiple acquired Chronic low back pain with right-sided sciatica x-ray of the lumbar spine on 08/15/2023 reveals chronic compression fracture of L3 with mild degenerative disc disease at L4-L5 with severe facet Arthritis bilaterally at L4-L5 and L5-S1. MRI of the lumbar spine on 02/15/2024 reveals moderate lumbar spondylosis with mild to moderate central canal stenosis and facet arthritis at L3-L4. Severe facet arthritis with neuroforaminal stenosis at L4-L5. At low risk for fall Chronic right hip pain mild osteoarthritis of both hips on x-ray 08/25/2023. Paronychia of great toe BMI 34.0-34.9,adult Gallstones Screening for diabetic retinopathy no retinopathy 09/29/2022. No retinopathy 10/15/2023. COVID-19 (01/04/23) tested positive 06/15/2022. Neoplasm of uncertain behavior of lip BMI 33.0-33.9,adult Obesity (BMI 30-39.9) Achilles tendinitis of left lower extremity Plantar fasciitis of left foot X-ray 09/21/2021 unremarkable except for small inferior calcaneal spur. Exposure to COVID-19 virus Otitis externa, fungal, left ear Chronic sinusitis PND (post-nasal drip) Otitis externa of left ear Impacted cerumen, bilateral Lateral epicondylitis BMI 35.0-35.9,adult Edema, peripheral Chronic right-sided low back pain without sciatica Nocturia Encounter for wellness examination in adult Encounter for prostate cancer screening PSA 0.78 on 07/31/2023. Tension headache, chronic Obstructive sleep apnea on CPAP CPAP at 9 cm of water pressure with nasal pillows with CPAP titration on 10/05/2016. Coronary artery disease without angina pectoris Stent of the LAD Controlled diabetes mellitus, without long-term current use of insulin Glucose 122 with hemoglobin A1c 6.4 on 11/28/2021. Glucose 136 with hemoglobin A1c 6.4 on 12/29/2022. glucose 159 with hemoglobin A1c 6.9 with urine microalbumin ratio of 5 on 07/31/2023. Glucose 159 with hemoglobin A1c 7.6 on 02/05/2024. Adenomatous colon polyp Repeat colonoscopy 08/12/2021 with 2 large polyps of the ascending colon with recheck in 4 months with colonoscopy.Two polyps on colonoscopy 01/13/2022 with recheck in 1 year.Colonoscopy 03/02/2023 with 2 polyps , tubular adenoma, recheck in 3 months. Colonoscopy 03/02/2023 with 2 tubular adenoma of the ascending colon. ascending colon with recheck in 3-4 months. Tubular adenoma Colon polyps 05/25/23 recheck 1 yr. Hypogonadism male Seborrhea Mixed hyperlipidemia Total cholesterol 105, triglycerides 108, HDL 39, LDL 47 on 11/28/2021. total cholesterol 103, HDL 35, triglycerides 113, LDL 48 on 12/29/2022. Cholesterol 115, triglycerides 137, HDL 39, LDL 76 with ratio 2.9 on 07/31/2023. Cholesterol 118, triglycerides 170, HDL 38, LDL 55 with ratio 3.1 on 02/05/2024. Seasonal allergic rhinitis Essential (primary) hypertension Surgical History Surgical History History of heart artery stent Family History Family History Mother Hypertension, Onset Age: 91 Family history of cardiovascular disease Father Patient's father is , Onset Age: 87 Social History Social History Smoking status: Former smoker Tobacco type: cigarettes Second hand tobacco smoke exposure: Yes Alcohol intake: never Substance use: never Substance use type: does not use Do You Feel Safe in your Home?: Yes Lack of Transportation: No Lack of Food: Never True Current Housing: I Have Housing Concerned About Future Housing: No Difficulty Paying Gas/Electric Bills: No Difficulty Paying for Meds: No Currently Unemployed: No Education: Trade/Vocational Certificate Difficulty w/ Childcare or Family Care: No Living arrangements: with family Spiritual care concerns: No Meds Home Medications and Allergies Home Medications ?Medication ?Instructions ?Recorded ?Confirmed ?Type aspirin 81 mg tablet,delayed 81 mg PO DAILY 08/01/21 06/24/24 History release (Charles Low Dose Aspirin) multivitamin with minerals-folic 1 tablet PO DAILY 08/01/21 06/24/24 History acid 0.4 mg tablet blood-glucose meter ([employer]LabTouch #1 ea 12/26/21 05/30/24 Rx Verio Meter) blood sugar diagnostic ([employer]LabTouch #100 ea 02/17/22 05/30/24 Rx Verio test strips) lancets 33 gauge ([employer] #100 ea 02/17/22 05/30/24 Rx Plus Lancet) lancing device with lancets kit #1 ea 02/17/22 05/30/24 Rx ([employer] Lancing Device kit) empagliflozin 25 mg tablet 25 mg PO DAILY #100 tabs 10/26/23 06/24/24 Rx (Jardiance) amlodipine 5 mg tablet 5 mg PO DAILY #90 tabs 12/24/23 06/24/24 Rx carvedilol 25 mg tablet 25 mg PO Q12H #180 tabs 12/24/23 06/24/24 Rx irbesartan 300 1 tablet PO DAILY #90 tabs 06/12/24 06/24/24 Rx mg-hydrochlorothiazide 12.5 mg tablet acetaminophen 500 mg capsule 1,000 mg PO Q4-6H PRN pain 06/24/24 06/24/24 History atorvastatin 20 mg tablet 20 mg PO DAILY #90 tabs 06/30/24 Rx metformin 500 mg tablet,extended 1,000 mg (2 x 500 mg) PO BID #360 06/30/24 Rx release 24 hr tabs Allergies Allergy/AdvReac Type Severity Reaction Status Date / Time No Known Allergies Allergy Verified 06/24/24 12:17 Exam Narrative: The patient's physical exam is essentially unchanged from prior examination on 06/02/2024. Specifically, patient demonstrates normal lung capacity, tidal volume and respiratory rate without wheezes, crackles, rales or rubs. Heart rate and rhythm are regular without murmurs, gallops or rubs. No JVD. Pulses 2+ globally without increasing peripheral edema. AAOx3 with no evidence of confusion, intoxication or altered mental state, NC/AT without acute distress or altered consciousness. Speech, cognition, mood, insight and judgment at baseline and within normal limits. Assessment and Plan Assessment and plan (1) Lumbosacral spondylosis: Code(s): M47.817 - Spondylosis without myelopathy or radiculopathy, lumbosacral region Status: Acute Assessment and Plan: proceed as planned with diagnostic /prognostic medial branch blocks bilaterally at L2, L3, L4, L5 ( # 1) a dressing the bilateral L3-4, L4-5, L5-S1 facet joints under fluoroscopic guidance with contrast control. (2) Chronic low back pain: Code(s): M54.50 - Low back pain, unspecified; G89.29 - Other chronic pain Status: Acute
--- NOTE | 2024-07-15 06:31 | WPDHPUPDATE1 ---
History and Physical Update Update Date/Time: 07/15/24 06:31 History and Physical has been reviewed, including an updated exam of the patient. There are NO changes in the patient's condition. Risks, benefits, and alternatives have been discussed and questions answered. Patient agrees to proceed with procedure.
--- NOTE | 2024-07-15 06:32 | P.OP_ITS ---
Procedure Note - Detailed Date of Procedure 07/15/24 Pre-op Diagnosis lumbosacral spondylosis, chronic low back pain Post-op Diagnosis Same Procedure Performed Diagnostic Bilateral Lumbar Medial Branch/Dorsal Ramus Blocks at L2, L3, L4, L5 Treating the bilateral L3-4, L4-5, L5-S1 Facet Joints Under Fluoroscopic Guidance and with Contrast Control. ( 6 levels blocked). Surgeon Jackson Arana MD Product Manufacturing Professional None. Anesthesia Local Description of Procedure INFORMED CONSENT: Risks, benefits and alternatives to the procedure were discussed in detail with the patient who expressed explicit understanding and consent to proceed. Patient was informed verbally and in written form regarding the risks associated with the procedure including the low risk of serious infection, bleeding/bruising, allergic reaction, nerve or organ injury, paralysis, procedural site pain or discomfort, worsening pain and/or mobility, failure to treat and/or disfigurement. The patient expressed explicit understanding and consent to proceed. All materials required for the procedure were available prior to procedure start. Site and side were marked prior to procedure and confirmed in the presence of the patient. PROCEDURE IN DETAIL: The patient was brought to the procedural suite and placed in the prone position. Patient was made comfortable with use of pillows under the head/chest, hips and ankles. Skin overlying the injection site on the affected side(s) was prepared broadly with ChloraPrep applicator and draped in a sterile manner. Aseptic technique was used throughout. The endplates of the vertebral bodies at the site(s) of interest were aligned in the AP view. Ipsilateral oblique angulation was utilized to optimize visualization of the intersection between the superior articulating process and transverse process at each target site. Local anesthesia was established by infiltration with approximately 5 mL of 1% lidocaine via a 1-1/2 inch 27-gauge needle. A 25-gauge 3.5 inch Quincke spinal needle was advanced until the needle tip contacted rei osteum at the target site, right L2. Lateral view was utilized to confirm the appropriate placement of the needle tip just anterior to the facet line and superior to the pedicle. In the Lateral view, 0.25 mL of Omnipaque 300 contrast medium was injected after negative aspiration for CSF, blood or other bodily fluid, showing appropriate extra-articular spread of contrast without evidence of intravascular, foraminal or intrathecal placement. A 0.5 mL solution of 0.5% PF bupivacaine was injected after negative repeat aspiration. Appropriate spread of the injectate was confirmed with washout of previously injected contrast. No parasthesias were elicited. Needle was removed completely intact without difficulty. The same exact procedure was repeated for all remaining levels on the ipsilateral side, right L3, L4, L5 medial branches/ dorsal ramus, modified as necessary to accommodate for the new target location with identical findings and results and no evidence of complication. The same exact procedure was repeated for all remaining levels on the contralateral side, left L2, L3, L4, L5 medial branches / dorsal ramus, modified as necessary to accommodate for the new target location with identical findings and results and no evidence of complication. Images were saved and documented in the patient chart. Patient's skin was cleaned and sterile bandage applied. The patient tolerated the procedure well. The patient was transported to the recovery area in stable condition where they were observed for an appropriate amount of time prior to discharge, without evidence of complication. Patient was instructed on the appropriate completion of a pain diary over the next 12-24 hours. The patient was instructed to avoid excessive activity for the next 48 hours, including climbing and frequent use of stairs. Showers only for 48 hours. They were instructed not to drive or operate heavy machinery for 24 hours. They are to monitor for severe headaches, fevers, chills, night sweats, erythema/swelling at the site or any other signs of infection, bleeding/bruising, bowel or bladder changes as well as new pain, weakness or numbness in the upper or lower extremity. Should they notice these changes, they are instructed to call our office immediately or report directly to the nearest Emergency Department if no answer or if after posted office hours. COMPLICATIONS: None COMMENTS: None CONTRAST WASTED: 28.0mL Omnipaque 300. Complications No immediate complications Condition Stable Disposition Same day [facility] Billing Surgery - Charge Forward: Surgery Billing
[2024-07-15 09:19] VITALS: BP 136/61; PULSE 62; RESP 16; TEMP 36.8; O2SAT 97
--- OUTSIDE RECORDS SUMMARY | 2024-07-15 09:22 | XMS_ITS | Clinical Summary ---
Author Organization [facility] Address [address] [place] [address]. 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 Gender Identity Not on file Sexual Orientation Not on file Plan of Treatment Health Maintenance Due Date Last Done Comments Colorectal Cancer Screening Colonoscopy (10 Years) 1955 Hepatitis C 1973 DTaP, Tdap and Td Vaccines ( 1 - Tdap) 1974 Pneumococcal Vaccine: 65+ Years (1 of 1 - PCV) 2020 COVID-19 Vaccine (3 - 2023-2 5 season) 2024 09/09/2020, 08/19/2020 Influenza Adult (#1) 2024 RSV Immunization or 60+ Years (1 - 1-dose 75+ series) 2030 Zoster Vaccines Completed 07/23/2020, 05/11/2020 Meningococcal B Vaccine Aged Out No l onger eligible based on patient's age to complete this topic Meningococcal Vaccine Aged Out No alejandra dimitri eligible based on patient's age to complete this topic RSV Immunizations Under 20 Months Aged Out No longer eligible b ased on patient's age to complete this topic
--- OUTSIDE RECORDS SUMMARY | 2024-07-15 09:22 | XMS_ITS | Continuity of Care Document ---
Author Organization [facility] Address [address] [place] [address] Phone Care Team Providers Care Tube Test Technician Name Role Phone Administrative, Provider Unavailable Unavail able Procedures Procedure Date Independent Medical Examination MAXIMILIANO Medical Record Copy Medical Record Copy Per Page Affidavit Advance Directives Directive Yes / No Effective Date File Name No Information Encounters Encounter Description Practice Location Reason(s) For Visit Diagnoses Date Provider Providers Copied on Encounter Independent Medical Examination MAXIMILIANO [facility], [facility] [address], [id number], tel:[phone] [facility] Pain in left hand Administrative Provider. [address] [place] [address], [id number], [place]. tel:[phone] Referring Provider: Jackson Velasco, [address], [place], [address] . tel:[phone] [facility], [address] [place] [address], [id number], [place] tel:[phone] [facility] No Information Administrative Provider. [address] [place] [address], [id number], [place]. tel:[phone] Family History Family Member Type Diagnosis Age At Onset No Information Payers Payer name Insurance type Covered republican ID Meka bray(s) [employer] [id number] Social History Type Description Quantity Date Captured Comments Alcohol Use Details Unknown Caffeine Use Details Unknown Tobacco Use Status No Information Smoking Status No Information Sex Male Chief Complaint And Reason For Visit No Information Reason For Referral Reason For Referral No Information History Of Present Illness Encounter Date Complaint History Of Prese nt Illness No Information Functional Status Date Functional Assessmen t No Information Instructions Date Instruction Additional Infor mation No Information Assessments Type Assessment Date assessment Pain in left hand Patient Care Teams Name Effective Dates (start - stop) Status Members No Information
--- NOTE | 2024-07-15 10:21 | SUR.PREOP ---
Pt did not hold aspirin before nerve block procedure with Dr. Arana as instructed for procedure at [facility] on 07/15/24. Pt states took aspirin today. This RN told Dr. Arana that pt did not hold aspirin, no further orders at this time.
[2024-07-15 10:27] VITALS: BP 146/70; PULSE 63; RESP 15; O2SAT 94
[2024-07-15 10:33] VITALS: BP 143/67; PULSE 64; RESP 14; O2SAT 93
[2024-07-15 10:38] VITALS: BP 132/55; PULSE 64; RESP 12; O2SAT 94
[2024-07-15] MEDS: LIDOCAINE 1% PF INJ 5 ML VIAL 2.5 ML XX (10:41)
[2024-07-15] MEDS: BUPivacaine HCL 0.5% 10 ML AMP 4 ML INFILTRATE (10:43)
[2024-07-15 10:45] VITALS: BP 109/60; PULSE 58; RESP 16; O2SAT 98
== END 2024-07-15 10:57 ==
LOC: ASC 09:00
PROVIDERS: PCP Family Medicine; Visit Provider Anesthesiology Pain Medicine
PROC: (CPT 64493; principal; 2024-07-15 10:15)
DX: M47.817 Spondylosis without myelopathy or radiculopathy, lumbosacral region (principal); G89.29 Other chronic pain
CPT/HCPCS: 64493 ×2; 64494 ×2; 64495 ×2; 99199

== ENCOUNTER 2024-09-09 09:16 | Day surgery (SDC) | payer MEDICARE, SELFPAY ==
[2024-08-20 09:33] VITALS: BMI 35.4
--- NOTE | ~2024-09-09 | XR_ITS ---
EXAMINATION: XR fluoroscopy no charge DATE: 09/09/2024 10:15 CDT INDICATION: DIAG/PROG MIGUEL L2,L3,L4,L5 LUMB MEDIAL BRANCH BLK . TECHNIQUE: 12 fluoroscopic images of the lumbar spine were obtained during diagnostic/prognostic bila teral L2-L5 lumbar medial branch block, addressing bilateral L3-4 through L5-S1 facet joints, perform ed by Jackson Arana MD. I was not present during the procedure. Fluoroscopy exposure time was 55.3 seconds. Air Kerma 22.48 mGy. COMPARISON: 07/15/2024 FINDINGS/IMPRESSION: Fluoroscopic documentation of diagnostic/prognostic bilateral L2-L5 lumbar medial branch block, addre ssing bilateral L3-4 through L5-S1 facet joints. Please refer to the operative note for complete proc edural details . Reviewed, dictated and finalized at location K.
[2024-09-09 09:39] VITALS: BMI 34.7
[2024-09-09 09:41] VITALS: BP 126/66; PULSE 65; RESP 18; TEMP 36.6; O2SAT 99
--- OUTSIDE RECORDS SUMMARY | 2024-09-09 09:59 | XMS_ITS | Continuity of Care Document ---
Author Organization [facility] Address [address] [place] [address] Phone Care Team Providers Care Powder Blender Name Role Phone Administrative, Provider Unavailable Unavail able Procedures Procedure Date Independent Medical Examination MAXIMILIANO Medical Record Copy Medical Record Copy Per Page Affidavit Advance Directives Directive Yes / No Effective Date File Name No Information Encounters Encounter Description Practice Location Reason(s) For Visit Diagnoses Date Provider Providers Copied on Encounter Independent Medical Examination MAXIMILIANO [facility], [facility] [address], [id number], tel:[phone] [facility] Pain in left hand Administrative Provider. [address] [place] [address], [id number], [place]. tel:[phone] Referring Provider: Jackson Velasco, [address], [place], [address] . tel:[phone] [facility] [address] [place] [address], [id number], [place] tel:[phone] [facility] No Information Administrative Provider. [address] [place] [address], [id number], [place]. tel:[phone] Family History Family Member Type Diagnosis Age At Onset No Information Payers Payer name Insurance type Covered constitution party ID Meka bray(s) [employer] [id number] Social History Type Description Quantity Date Captured [...]
--- OUTSIDE RECORDS SUMMARY | 2024-09-09 09:59 | XMS_ITS | Clinical Summary ---
Author Organization 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
--- NOTE | 2024-09-09 10:00 | PM.HPGS ---
History of Present Illness History of Present Illness Consent: Risks, benefits, and alternatives have been discussed and questions answered. Patient agrees to proceed with procedure. Chief complaint: Other Spondylosis w/Radiculopathy, chronic low velma Narrative: Thom Tse is a 69 year old male with chronic, recalcitrant and disabling bilateral lumbosacral back pain secondary to degenerative spondylosis with failure to respond to aggressive conservative measures including PT, oral and topical analgesics, opioid and nonopioid analgesics, rest, time and activity/behavioral modification over the past 1-2 years who presents for diagnostic/prognostic medial branch blocks of the bilateral L2, L3, L4, L5 medial branches/dorsal ramus(#2) addressing the bilateral L3-4, L4-5, L5-S1 facet joints under fluoroscopic guidance and with contrast control. Review of Systems Review of Systems: Patient denies any new infectious, allergic, cardiopulmonary, neurologic or constitutional symptoms or changes in activity tolerance or exercise capacity including new or progressive SOB/THRASHER, peripheral edema, productive cough, dysuria, nausea/vomiting, diarrhea, weight change, fevers/chills/night sweats, new or progressive neurologic deficit, cognitive or mood changes since last seen, except as documented in the HPI. [facility] Past Medical History Medical History Umbilical hernia without obstruction and without gangrene chronic 1 cm umbilical hernia Anxiety Skin tags, multiple acquired Chronic low back pain with right-sided sciatica x-ray of the lumbar spine on 08/15/2023 reveals chronic compression fracture of L3 with mild degenerative disc disease at L4-L5 with severe facet Arthritis bilaterally at L4-L5 and L5-S1. MRI of the lumbar spine on 02/15/2024 reveals moderate lumbar spondylosis with mild to moderate central canal stenosis and facet arthritis at L3-L4. Severe facet arthritis with neuroforaminal stenosis at L4-L5. At low risk for fall Chronic right hip pain mild osteoarthritis of both hips on x-ray 08/25/2023. Paronychia of great toe BMI 34.0-34.9,adult Gallstones Screening for diabetic retinopathy no retinopathy 09/29/2022. No retinopathy 10/15/2023. COVID-19 (06/14/22) tested positive 06/15/2022. Neoplasm of uncertain behavior of lip BMI 33.0-33.9,adult Obesity (BMI 30-39.9) Achilles tendinitis of left lower extremity Plantar fasciitis of left foot X-ray 09/21/2021 unremarkable except for small inferior calcaneal spur. Exposure to COVID-19 virus Otitis externa, fungal, left ear Chronic sinusitis PND (post-nasal drip) Otitis externa of left ear Impacted cerumen, bilateral Lateral epicondylitis BMI 35.0-35.9,adult Edema, peripheral Chronic right-sided low back pain without sciatica Nocturia Encounter for wellness examination in adult Encounter for prostate cancer screening PSA 0.78 on 07/31/2023. Tension headache, chronic Obstructive sleep apnea on CPAP CPAP at 9 cm of water pressure with nasal pillows with CPAP titration on 10/05/2016. Coronary artery disease without angina pectoris Stent of the LAD Controlled diabetes mellitus, without long-term current use of insulin Glucose 122 with hemoglobin A1c 6.4 on 11/28/2021. Glucose 136 with hemoglobin A1c 6.4 on 12/29/2022. glucose 159 with hemoglobin A1c 6.9 with urine microalbumin ratio of 5 on 07/31/2023. Glucose 159 with hemoglobin A1c 7.6 on 02/05/2024. Adenomatous colon polyp Repeat colonoscopy 08/12/2021 with 2 large polyps of the ascending colon with recheck in 4 months with colonoscopy.Two polyps on colonoscopy 01/13/2022 with recheck in 1 year.Colonoscopy 03/02/2023 with 2 polyps , tubular adenoma, recheck in 3 months. Colonoscopy 03/02/2023 with 2 tubular adenoma of the ascending colon. ascending colon with recheck in 3-4 months. Tubular adenoma Colon polyps 05/25/23 recheck 1 yr. Hypogonadism male Seborrhea Mixed hyperlipidemia Total cholesterol 105, triglycerides 108, HDL 39, LDL 47 on 11/28/2021. total cholesterol 103, HDL 35, triglycerides 113, LDL 48 on 12/29/2022. Cholesterol 115, triglycerides 137, HDL 39, LDL 76 with ratio 2.9 on 07/31/2023. Cholesterol 118, triglycerides 170, HDL 38, LDL 55 with ratio 3.1 on 02/05/2024. Seasonal allergic rhinitis Essential (primary) hypertension Surgical History Surgical History History of heart artery stent Family History Family History Mother Hypertension, Onset Age: 91 Family history of cardiovascular disease Father Patient's father is , Onset Age: 87 Social History Social History Smoking status: Former smoker Tobacco type: cigarettes Second hand tobacco smoke exposure: Yes Alcohol intake: never Substance use: never Substance use type: does not use Do You Feel Safe in your Home?: Yes Lack of Transportation: No Lack of Food: Never True Current Housing: I Have Housing Concerned About Future Housing: No Difficulty Paying Gas/Electric Bills: No Difficulty Paying for Meds: No Currently Unemployed: No Education: Trade/Vocational Certificate Difficulty w/ Childcare or Family Care: No Living arrangements: with family Spiritual care concerns: No Meds Home Medications and Allergies Home Medications ?Medication ?Instructions ?Recorded ?Confirmed ?Type aspirin 81 mg tablet,delayed 81 mg PO DAILY 08/01/21 09/09/24 History release (Charles Low Dose Aspirin) multivitamin with minerals-folic 1 tablet PO DAILY 08/01/21 09/09/24 History acid 0.4 mg tablet blood-glucose meter (EquidateTouch #1 ea 12/26/21 07/21/24 Rx Verio Meter) blood sugar diagnostic (EquidateTouch #100 ea 02/17/22 07/21/24 Rx Verio test strips) lancets 33 gauge (Canvace #100 ea 02/17/22 07/21/24 Rx Plus Lancet) lancing device with lancets kit #1 ea 02/17/22 07/21/24 Rx (Canvace Lancing Device kit) empagliflozin 25 mg tablet 25 mg PO DAILY #100 tabs 10/26/23 09/09/24 Rx (Jardiance) amlodipine 5 mg tablet 5 mg PO DAILY #90 tabs 12/24/23 09/09/24 Rx carvedilol 25 mg tablet 25 mg PO Q12H #180 tabs 12/24/23 09/09/24 Rx irbesartan 300 1 tablet PO DAILY #90 tabs 06/12/24 09/09/24 Rx mg-hydrochlorothiazide 12.5 mg tablet acetaminophen 500 mg capsule 1,000 mg PO Q4-6H PRN pain 06/24/24 08/20/24 History atorvastatin 20 mg tablet 20 mg PO DAILY #90 tabs 06/30/24 09/09/24 Rx metformin 500 mg tablet,extended 1,000 mg (2 x 500 mg) PO BID #360 06/30/24 09/09/24 Rx release 24 hr tabs Allergies Allergy/AdvReac Type Severity Reaction Status Date / Time No Known Allergies Allergy Verified 09/09/24 09:30 Vital Signs Vital Signs - 24 hr 09/09/24 09:41 Temperature 97.8 F Pulse Rate 65 Respiratory Rate 18 Blood Pressure 126/66 Pulse Oximetry 99 Oxygen Delivery Room Air Exam Narrative: The patient's physical exam is essentially unchanged from prior examination on 07/28/2024. Specifically, patient demonstrates normal lung capacity, tidal volume and respiratory rate without wheezes, crackles, rales or rubs. Heart rate and rhythm are regular without murmurs, gallops or rubs. No JVD. Pulses 2+ globally without increasing peripheral edema. AAOx3 with no evidence of confusion, intoxication or altered mental state, NC/AT without acute distress or altered consciousness. Speech, cognition, mood, insight and judgment at baseline and within normal limits. Assessment and Plan Assessment and plan (1) Lumbosacral spondylosis: Code(s): M47.817 - Spondylosis without myelopathy or radiculopathy, lumbosacral region Status: Acute Assessment and Plan: Proceed as planned with diagnostic/prognostic medial branch blocks of the bilateral L2, L3, L4, L5 medial branches/dorsal ramus(#2) addressing the bilateral L3-4, L4-5, L5-S1 facet joints under fluoroscopic guidance and with contrast control. (2) Chronic low back pain: Code(s): M54.50 - Low back pain, unspecified; G89.29 - Other chronic pain Status: Acute
--- NOTE | 2024-09-09 10:02 | WPDHPUPDATE1 ---
History and Physical Update Update Date/Time: 09/09/24 10:02 History and Physical has been reviewed, including an updated exam of the patient. There are NO changes in the patient's condition. Risks, benefits, and alternatives have been discussed and questions answered. Patient agrees to proceed with procedure.
--- NOTE | 2024-09-09 10:03 | W.PM.PROC2 ---
Procedure Note - Detailed Date of Procedure 09/09/24 Pre-op Diagnosis Other Spondylosis w/Radiculopathy, chronic low velma Post-op Diagnosis Same Procedure Performed Diagnostic bilateral Lumbar Medial Branch/Dorsal Ramus Blocks at L2, L3, L4, L5 Treating the bilateral L3-4, L4-5, L5-S1 Facet Joints Under Fluoroscopic Guidance and with Contrast Control. (6 levels blocked). Surgeon Jackson Arana MD Diesel Engine Assembler None. Anesthesia Local Description of Procedure INFORMED CONSENT: Risks, benefits and alternatives to the procedure were discussed in detail with the patient who expressed explicit understanding and consent to proceed. Patient was informed verbally and in written form regarding the risks associated with the procedure including the low risk of serious infection, bleeding/bruising, allergic reaction, nerve or organ injury, paralysis, procedural site pain or discomfort, worsening pain and/or mobility, failure to treat and/or disfigurement. The patient expressed explicit understanding and consent to proceed. All materials required for the procedure were available prior to procedure start. Site and side were marked prior to procedure and confirmed in the presence of the patient. PROCEDURE IN DETAIL: The patient was brought to the procedural suite and placed in the prone position. Patient was made comfortable with use of pillows under the head/chest, hips and ankles. Skin overlying the injection site on the affected side(s) was prepared broadly with ChloraPrep applicator and draped in a sterile manner. Aseptic technique was used throughout. The endplates of the vertebral bodies at the site(s) of interest were aligned in the AP view. Ipsilateral oblique angulation was utilized to optimize visualization of the intersection between the superior articulating process and transverse process at each target site. Local anesthesia was established by infiltration with approximately 5 mL of 1% lidocaine via a 1-1/2 inch 27-gauge needle. A 25-gauge 5.0 inch Quincke spinal needle was advanced until the needle tip contacted periosteum at the target site, right L2. Lateral view was utilized to confirm the appropriate placement of the needle tip just anterior to the facet line and superior to the pedicle. In the Lateral view, 0.25 mL of Omnipaque 300 contrast medium was injected after negative aspiration for CSF, blood or other bodily fluid, showing appropriate extra-articular spread of contrast without evidence of intravascular, foraminal or intrathecal placement. A 0.5 mL solution of 2.0% PF lidocaine was injected after negative repeat aspiration. Appropriate spread of the injectate was confirmed with washout of previously injected contrast. No parasthesias were elicited. Needle was removed completely intact without difficulty. The same exact procedure was repeated for all remaining levels on the ipsilateral side, right L3, L4, L5 medial branches/dorsal ramus, modified as necessary to accommodate for the new target location with identical findings and results and no evidence of complication. The same exact procedure was repeated for all remaining levels on the contralateral side, left L2, L3, L4, L5 medial branches/dorsal ramus, modified as necessary to accommodate for the new target location with identical findings and results and no evidence of complication. Images were saved and documented in the patient chart. Patient's skin was cleaned and sterile bandage applied. The patient tolerated the procedure well. The patient was transported to the recovery area in stable condition where they were observed for an appropriate amount of time prior to discharge, without evidence of complication. Patient was instructed on the appropriate completion of a pain diary over the next 12-24 hours. The patient was instructed to avoid excessive activity for the next 48 hours, including climbing and frequent use of stairs. Showers only for 48 hours. They were instructed not to drive or operate heavy machinery for 24 hours. They are to monitor for severe headaches, fevers, chills, night sweats, erythema/swelling at the site or any other signs of infection, bleeding/bruising, bowel or bladder changes as well as new pain, weakness or numbness in the upper or lower extremity. Should they notice these changes, they are instructed to call our office immediately or report directly to the nearest Emergency Department if no answer or if after posted office hours. COMPLICATIONS: None COMMENTS: None CONTRAST WASTED: 28.0 mL Omnipaque 300. Complications No immediate complications Condition Stable Disposition Same day [facility] Billing Surgery - Charge Forward: Surgery Billing
[2024-09-09 10:12] VITALS: BP 129/65; PULSE 63; RESP 16; O2SAT 95
[2024-09-09 10:16] VITALS: BP 160/71; PULSE 66; RESP 15; O2SAT 95
[2024-09-09 10:21] VITALS: BP 163/79; PULSE 64; RESP 16; O2SAT 95
[2024-09-09 10:25] VITALS: BP 153/72; PULSE 65; RESP 15; O2SAT 95
[2024-09-09] MEDS: LIDOCAINE 1% PF INJ 5 ML VIAL INFILTRATE (10:28)
[2024-09-09] MEDS: LIDOCAINE 2% PF LOCAL INJ 5 ML VIAL INFILTRATE (10:28)
[2024-09-09 10:31] VITALS: BP 137/69; PULSE 60; RESP 18; O2SAT 98
== END 2024-09-09 10:40 | disposition home or self-care (01) ==
PROVIDERS: PCP Family Medicine; Visit Provider Anesthesiology Pain Medicine
PROC: (CPT 64493; principal; 2024-09-09 10:45)
DX: M47.817 Spondylosis without myelopathy or radiculopathy, lumbosacral region (principal); G89.29 Other chronic pain
CPT/HCPCS: 64493 ×2; 64494 ×2; 64495 ×2; 99199

== ENCOUNTER 2024-10-06 00:54 | Day surgery (SDC) | payer MEDICARE, SELFPAY ==
[2024-09-22 15:16] VITALS: BMI 34.2
--- OUTSIDE RECORDS SUMMARY | 2024-10-06 00:57 | XMS_ITS | Continuity of Care Document ---
Author Organization [facility] Address [address] [place] [address] Phone Care Team Providers Care Equities Trader Name Role Phone Administrative, Provider Unavailable Unavail able Procedures Procedure Date Independent Medical Examination MAXIMILIANO Medical Record Copy Medical Record Copy Per Page Affidavit Advance Directives Directive Yes / No Effective Date File Name No Information Encounters Encounter Description Practice Location Reason(s) For Visit Diagnoses Date Provider Providers Copied on Encounter Independent Medical Examination MAXIMILIANO [facility], [facility] [address], [id number], tel:[phone] [facility] Pain in left hand Administrative Provider. [address] [place] [address], [id number], [place]. tel:[phone] Referring Provider: Jackson Velasco, [address], [place], [address] . tel:[phone] [facility], [address] [place] [address], [id number], [place] tel:[phone] [facility] No Information Administrative Provider. [address] [place] [address], [id number], [place]. tel:[phone] Family History Family Member Type Diagnosis Age At Onset No Information Payers Payer name Insurance type Covered libertarian ID Meka bray(s) [employer] [id number] Social History Type Description Quantity Date Captured [...]
--- OUTSIDE RECORDS SUMMARY | 2024-10-06 00:57 | XMS_ITS | Clinical Summary ---
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
--- OUTSIDE RECORDS SUMMARY | 2024-10-06 00:57 | XMS_ITS | Data Portability ---
Author Organization [facility] [employer], Main Office Address [address] [place] [address] Care Team Providers Care Aeronautical Design Engineer Name Role Phone KRISTY TREVINO Primary Care Provider IRIS, ANDREW Statistical Engineer Unavailable IRIS, ANDREW Statistical Engineer Unavailable Assessment No assessment recorded. Plan of Treatment Reminders Order Date Submit Date Provider Last Modified By Organization Details Last Modified Time Details Appointments None record ed. Lab None record ed. Referral None record ed. Procedures None record ed. Surgeries None record ed. Imaging None record ed. Medication Orders None record ed. Patient TargetsNo targets recorded. Patient InstructionsNo instructions recorded. Reason for Referral None Reported. Problems Name Problem SNOMED Code Status Onset Date Resolution Date Notes Provider Name and Address Organization Details Recorded Time Body mass index 30+ - obesity 940650420 Active 2017 Not Available [facility] 3 18:53:34 Localized, primary osteoarthriti s 755786815 Active Not Available [facility] 3 18:53:35 Partial thickness rotator cuff tear 003439605 Active Not Available [facility] 3 18:53:35 Shoulder joint pain 580196987 Active Not Available [facility] 3 18:53:35 Hypertensive disorder 23193427 Active 2018 Not Available [facility] 3 18:53:35 Periodic limb movement disorder 720281088 Active 2017 Not Available [facility] 3 18:53:35 Obstructive sleep apnea syndrome 98937420 Active 2017 Not Available [facility] 3 18:53:35 Problem Notes None recorded. Medical Equipment None Reported. Allergies Allergen ID Allergen Name Allergen Category Reaction Reaction Severity Criticality Documentation Date Start Date Code Code System Note Provider Name and Address Organization Details Recorded Time 78722 Product containin g penicilli n (product) medicatio n Not available Not available Not available 08/09/2022 93999 8001 SNOMED Not Available [facility] 3 18:56:24 Medications Name Sig Start Date Stop Date Status Note LastModified by Organization Details LastModified Time atorvastati n 40 mg tablet 10/15 completed Not Available Not Available Not Available neomycin-po lymyxin-hyd rocort 3.5 mg/mL-10,00 0 unit/mL-1 % ear solution INSTILL 5 DROPS INTO LEFT EAR EVERY 8 HOURS 04/25 completed Not Available Not Available Not Available carvedilol 25 mg tablet active Not Available Not Available Not Available acetic acid 2 % ear solution INSTILL 7 DROPS INTO LEFT EAR THREE TIMES DAILY FOR 10 DAYS 04/25 completed Not Available Not Available Not Available Toprol XL 25 mg tablet,exte nded release 04/14 completed Not Available Not Available Not Available atorvastati n 20 mg tablet active Not Available Not Available Not Available carvedilol 12.5 mg tablet 04/15 completed Not Available Not Available Not Available Toprol XL 100 mg tablet,exte nded release 04/14 completed Not Available Not Available Not Available ondansetron HCl 8 mg tablet 12/22 completed Not Available Not Available Not Available meloxicam 15 mg tablet TAKE 1 TABLET BY MOUTH ONCE DAILY NEEDED FOR PAIN active Not Available Not Available No t Available prednisone 20 mg tablet 12/22 completed Not Available Not Available Not Available Toprol XL 50 mg tablet,exte nded release 1 po qd 04/14 completed Not Available Not Available Not Available clopidogrel 75 mg tablet 1 po qd 04/14 completed Not Available Not Available Not Available amlodipine 5 mg tablet active Not Available Not Available Not Available peg-electro lyte solution 420 gram oral solution DRINK 240 ML BY MOUTH EVERY 10 MINUTES DIRECTED 04/25 completed Not Available Not Available Not Available ketorolac 10 mg tablet 12/22 completed Not Available Not Available Not Available oxycodone-a cetaminophe n 5 mg-325 mg tablet 04/14 completed Not Available Not Available Not Available terbinafine HCl 250 mg tablet active Not Available Not Available Not Available aspirin 325 mg tablet,leonard yed release 04/15 completed Not Available Not Available Not Available amitriptyli ne 10 mg tablet 12/22 completed Not Available Not Available Not Available amlodipine 10 mg tablet 04/15 completed Not Available Not Available Not Available benzonatate 100 mg capsule 04/16 completed Not Available Not Available Not Available hydrocodone 7.5 mg-acetamin ophen 325 mg tablet 12/22 completed Not Available Not Available Not Available cephalexin 500 mg capsule TAKE 1 CAPSULE BY MOUTH EVERY 12 HOURS active Not Available Not Available No t Available oseltamivir 75 mg capsule 12/22 completed Not Available Not Available Not Available irbesartan 300 mg-hydrochl orothiazide 12.5 mg tablet 1 po qd active Not Available Not Available Not Available aspirin 81 mg tablet Take 1 tablet every day by oral route. 04/14 completed Not Available Not Available Not Available mupirocin 2 % topical ointment APPLY OINTMENT TOPICALLY TO AFFECTED AREA TWICE DAILY active Not Available Not Available No t Available cefdinir 300 mg capsule 04/14 completed Not Available Not Available Not Available fluticasone propionate 50 mcg/actuati on nasal spray,suspe nsion USE 2 SPRAY(S) IN EACH NOSTRIL TWICE DAILY active Not Available Not Available No t Available metformin ER 500 mg tablet,exte nded release 24 hr 4 tabs at dinner active Not Available Not Available No t Available clindamycin phosphate 1 % topical solution APPLY 2 DROPS DAILY TO PROCEDURE SITE active Not Available Not Available No t Available Aspir-81 2019 active Not Available Not Available Not Avai lable Glucosamine 2019 active Not Available Not Available Not Avai lable multivitami n 2019 active Not Available Not Available Not Avai lable sodium,pota ssium,mag sulfates 17.5 gram-3.13 gram-1.6 gram oral soln TAKE DIRECTED active Not Available Not Available No t Available OneTouch Verio test strips active Not Available Not Available Not Available Jardiance 25 mg tablet TAKE 1 TABLET BY MOUTH ONCE DAILY active Not Available Not Available No t Available OneTouch Verio Flex Meter active Not Available Not Available Not Available OneTouch Ultra Blue Test Strip active Not Available Not Available N ot Available OneTouch Delica Plus Lancet 33 gauge active Not Available Not Available Not Available OneTouch Delica Plus Lancing Device kit active Not Available Not Available N ot Available Fluzone Quad (PF) 60 mcg (15 mcg x 4)/0.5 mL IM syringe active Not Available Not Available N ot Available BinaxNOW COVID-19 Ag Self Test kit Use as Directed on the Package 09/22 completed Not Available Not Available Not Available Vitals Date Recorded Body mass index (BMI) Body height Oxygen saturation Oxygen saturation in Arterial blood by Pulse oximetry Heart rate Body temperature Body weight Systolic blood pressure Diastolic blood pressure Provider Name and Address Organization Details Last Updated DateTime 1 35.9 kg/m2 175.26 cm 98 % 98 % 51 /min 97.3 [degF] 334165. 95 g 118 mm[Hg] 52 mm[Hg] Not Available [facility] 3 18:53:14 Date Recorded Oxygen saturation Oxygen saturation in Arterial blood by Pulse oximetry Heart rate Body temperature Body weight Systolic blood pressure Diastolic blood pressure Provider Name and Address Organization Details Last Updated DateTime 2 97 % 97 % 60 /min 97.3 [degF] 97721.3 2 g 130 mm[Hg] 80 mm[Hg] Not Available [facility] 3 18:53:14 Date Recorded Body temperature Body height Body mass index (BMI) Body weight Heart rate Oxygen saturation Oxygen saturation in Arterial blood by Pulse oximetry Systolic blood pressure Diastolic blood pressure Provider Name and Address Organization Details Last Updated DateTime 3 97.2 [degF] 175.26 cm 33.7 kg/m2 526468. 06 g 64 /min 94 % 94 % 120 mm[Hg] 70 mm[Hg] Loreta Paulino MA [facility] [employer] 3 09:49:59 Date Recorded Body height Body mass index (BMI) Body weight Body temperature Heart rate Oxygen saturation Oxygen saturation in Arterial blood by Pulse oximetry Systolic blood pressure Diastolic blood pressure Provider Name and Address Organization Details Last Updated DateTime 3 175.26 cm 34.1 kg/m2 870882. 84 g 97.8 [degF] 58 /min 98 % 98 % 130 mm[Hg] 52 mm[Hg] Sendy Mckeon [place] [employer] 3 12:04:59 Social History None recorded. Functional Status None recorded. Mental Status None recorded. Family History Nothing Reported. Medical History No medical history recorded. Immunizations Vaccine Type Date Status Note Provider Nam e and Address Organization Details Recorded Time Influenza, split virus, quadrivalent, preservative 0 completed Not Available [facility] 08/09/2022 18:56:21 Influenza, split virus, quadrivalent, PF 9 completed Not Available [facility] 08/09/2022 18:56:22 Influenza, split virus, quadrivalent, PF 8 completed Not Available [facility] 08/09/2022 18:56:22 Past Encounters Encounter ID Performer Location Encounter Start Date Encounter Closed Date Diagnosis/Indication Diagnosis SNOMED-CT Code Diagnosis ICD10 Code Diagnosis Note [id number] [facility] [place] [address] [place] [address] 04/15/2021 00:00:00 04/15/2021 12:17:22 [id number] [facility] [place] [address] [place] [address] 04/25/2022 00:00:00 04/25/2022 13:20:21 [id number] Maru Becker, INTERIOR DESIGN PROJECT MANAGER- [facility] [place] [address] [place] [address] 09/22/2022 09:42:05 09/22/2022 10:50:49 Obstructive sleep apnea syndrome 81300116 G47.33 2017 unattended home study with an AHI of 8.3.Titrat ion study 10/05/16 with an optimal titration of 9 cm water pressure.M achine set up 11/10/16Ne w machine learning intern ow nload today with 97% use greater than 4 hours.His AHI is 1.4OSA is well correctedE ncouraged 100% compliance with all sleepFollo w with PCM for labsAdvise d good sleep habits and patterns:- Set a goal for at least 7 to 8 hours of sleep time per day.-Use the bed mainly for sleep and to go to bed only when tired. If unable to fall asleep after 30 minutes, patient should get out of bed but should not engage in any activity that requires sustained mental alertness. -Maintain a regular bedtime and wake-up time even on weekends-A void excessive naps during the daytime. If a nap is necessary, limit it to no more than 30 minutes.-M inimize environmen abdi noise, bright lights, and extremes in bedroom temperatur e.-Avoid alcohol, caffeinate d beverages, and nicotine products for at least 6 hours prior to bedtime.-A void strenuous exercise and large meals for at least 4 hours prior to bedtime.RT C in 3 months Periodic l imb movement disorder 559224605 G47.61 Overall limb movement index during CPAP titration study was 64.8.Labs were normalDecl sai medication s [id number] Maru Becker, INTERIOR DESIGN PROJECT MANAGER-BC [facility] [place] [address] [place] [address] 12/18/2022 11:48:20 12/18/2022 13:30:14 Obstructive sleep apnea syndrome 09537281 G47.33 2017 unattended home study with an AHI of 8.3.Titrat ion study 10/05/16 with an optimal titration of 9 cm water pressure.M achine set up 11/10/16Ne w machine learning intern ow nload today with 100% use greater than 4 hours.His AHI is 1.4OSA is well correctedE ncouraged 100% compliance with all sleepFollo w with PCM for labsAdvise d good sleep habits and patterns:- Set a goal for at least 7 to 8 hours of sleep time per day.-Use the bed mainly for sleep and to go to bed only when tired. If unable to fall asleep after 30 minutes, patient should get out of bed but should not engage in any activity that requires sustained mental alertness. -Maintain a regular bedtime and wake-up time even on weekends-A void excessive naps during the daytime. If a nap is necessary, limit it to no more than 30 minutes.-M inimize environmen abdi noise, bright lights, and extremes in bedroom temperatur e.-Avoid alcohol, caffeinate d beverages, and nicotine products for at least 6 hours prior to bedtime.-A void strenuous exercise and large meals for at least 4 hours prior to bedtime.I have instructed him to take his machine with him if he has surgeryRTC in 6 months, PRN for concerns Periodic l imb movement disorder 140218835 G47.61 Overall limb movement index during CPAP titration study was 64.8.Labs were normalDecl sai medication s Health Concerns Section Related Observation LastModified by Organization Detai ls LastModified Time None Recorded Concern Status LastModified by Organization Details LastModified Time None Recorded Advance Directives Directive None Recorded Payers Encounter Date Sequence Insurance Name Policy Number Policy Richardson Covered Member ID Richardson Member ID Guarantor Name 09/22/2022 1 [facility] (MEDICARE REPLACEMENT/A DVANTAGE - HMO) [id number] Thom Tse [id number] Thom Tse 12/18/2022 1 [facility] (MEDICARE REPLACEMENT/A DVANTAGE - HMO) [id number] Thom Tse [id number] Thom Tse Notes Date Note Type Note Provider Name and Address Organization Details Recorded Time 09/22/2022 text/html Thom presents michael persaud to follow up on JENNIFER.He got a new CPAP in May and tells me that it is working wellNo changes in medical history over the last several monthsReports restful sleep most nights and wakes feeling well rested.Denies nocturia.No significant morning headaches, xerostomia or aerophagiaTells me that his water chamber runs dry quicker in this machine but it does not interfere with use.Chronic sinus congestionDoes not nap during the dayCleans machine and replaces supplies as directedEnergy levels during the day are good.No difficulty with pressure levelsHe does not wake due leak or mask discomfort - uses nasal pillows Maru Becker, [facility] [address], [place], [address], [facility] [employer] 09/22/2022 14:13:06 12/18/2022 text/html Thom presents michael persaud to follow up on JENNIFER.New CPAP in May 2022No changes to medications or symptoms over the last several monthsReports restful sleep most nights and wakes feeling well rested.Denies nocturia.No significant morning headaches, xerostomia or aerophagiaChronic sinus congestionHe did have a CT chest and was told he has a gallstone - he is considering surgery Maru Becker, INTERIOR DESIGN PROJECT MANAGER-BC [address], [address], [place], [address], [facility] 12/18/2022 15:05:42
[2024-10-06 06:25] VITALS: BP 154/71; PULSE 61; RESP 18; TEMP 36.4; O2SAT 98
[2024-10-06] MEDS: LACTATED RINGERS 1,000 ML 150 ML IV CONT (06:27)
[2024-10-06 06:35] LABS: Glucose Point of Care 161 mg/dl (65-105)
--- NOTE | 2024-10-06 06:56 | P.PNAN_ITS ---
Anes - Initial Pre Proc Eval Procedure: Operation Date: 10/06/24 07:30 Proposed Procedures p Colonoscopy - Jose Antonio Crowe MD Date/Time: 10/06/24 06:56 Surgeon: Jose Antonio Crowe MD Pre Op Diagnosis: hx of colon polyps Patient Data Age: 69 Gender: M Height: 1.75 m Weight: 104.7 kg Last Vital Signs Temp 97.5 F L 10/06/24 06:25 Pulse 61 10/06/24 06:25 Resp 18 10/06/24 06:25 BP 154/71 H 10/06/24 06:25 Pulse Ox 98 10/06/24 06:25 O2 Del Method Room Air 10/06/24 06:25 Allergies Allergy/AdvReac Type Severity Reaction Status Date / Time No Known Allergies Allergy Verified 09/29/24 08:02 Home Medications ?Medication ?Instructions ?Recorded ?Confirmed ?Type aspirin 81 mg tablet,delayed 81 mg PO DAILY 08/01/21 10/06/24 History release (Charles Low Dose Aspirin) multivitamin with minerals-folic 1 tablet PO DAILY 08/01/21 10/06/24 History acid 0.4 mg tablet blood-glucose meter (ImageVisionTouch #1 ea 12/26/21 09/24/24 Rx Verio Meter) blood sugar diagnostic (ImageVisionTouch #100 ea 02/17/22 09/24/24 Rx Verio test strips) lancets 33 gauge (ServiceRelated #100 ea 02/17/22 09/24/24 Rx Plus Lancet) lancing device with lancets kit #1 ea 02/17/22 09/24/24 Rx (ServiceRelated Lancing Device kit) amlodipine 5 mg tablet 5 mg PO DAILY #90 tabs 12/24/23 10/06/24 Rx irbesartan 300 1 tablet PO DAILY #90 tabs 06/12/24 09/24/24 Rx mg-hydrochlorothiazide 12.5 mg tablet acetaminophen 500 mg capsule 1,000 mg PO Q4-6H PRN pain 06/24/24 09/24/24 History empagliflozin 25 mg tablet 25 mg PO DAILY #100 tabs 09/10/24 09/24/24 Rx (Jardiance) terbinafine HCl 250 mg tablet 250 mg PO DAILY 09/22/24 10/06/24 History metformin 500 mg tablet,extended 500 mg PO BID 09/24/24 10/06/24 History release 24 hr atorvastatin 20 mg tablet 20 mg PO DAILY #90 tabs 09/29/24 10/06/24 Rx carvedilol 25 mg tablet 25 mg PO Q12H #180 tabs 09/29/24 10/06/24 Rx Laboratory Tests 10/06/24 06:31 POC Capillary Glucose 161 H mg/dl (65-105) Patient hx anesthesia problems: none Family hx anesthesia problems: none Results Review: All pre-operative results and documents have been reviewed as part of the pre- operative evaluation. [facility] Past Medical History Medical History Umbilical hernia without obstruction and without gangrene chronic 1 cm umbilical hernia Anxiety Skin tags, multiple acquired Chronic low back pain with right-sided sciatica x-ray of the lumbar spine on 08/15/2023 reveals chronic compression fracture of L3 with mild degenerative disc disease at L4-L5 with severe facet Arthritis bilaterally at L4-L5 and L5-S1. MRI of the lumbar spine on 02/15/2024 reveals moderate lumbar spondylosis with mild to moderate central canal stenosis and facet arthritis at L3-L4. Severe facet arthritis with neuroforaminal stenosis at L4-L5. At low risk for fall Chronic right hip pain mild osteoarthritis of both hips on x-ray 08/25/2023. Paronychia of great toe BMI 34.0-34.9,adult Gallstones Screening for diabetic retinopathy no retinopathy 09/29/2022. No retinopathy 10/15/2023. COVID-19 (06/14/22) tested positive 06/15/2022. Neoplasm of uncertain behavior of lip BMI 33.0-33.9,adult Obesity (BMI 30-39.9) Achilles tendinitis of left lower extremity Plantar fasciitis of left foot X-ray 09/21/2021 unremarkable except for small inferior calcaneal spur. Exposure to COVID-19 virus Otitis externa, fungal, left ear Chronic sinusitis PND (post-nasal drip) Otitis externa of left ear Impacted cerumen, bilateral Lateral epicondylitis BMI 35.0-35.9,adult Edema, peripheral Chronic right-sided low back pain without sciatica Nocturia Encounter for wellness examination in adult Encounter for prostate cancer screening PSA 0.78 on 07/31/2023. PSA 0.71 on 08/26/2024. Tension headache, chronic Obstructive sleep apnea on CPAP CPAP at 9 cm of water pressure with nasal pillows with CPAP titration on 10/05/2016. Coronary artery disease without angina pectoris Stent of the LAD Controlled diabetes mellitus, without long-term current use of insulin Glucose 122 with hemoglobin A1c 6.4 on 11/28/2021. Glucose 136 with hemoglobin A1c 6.4 on 12/29/2022. glucose 159 with hemoglobin A1c 6.9 with urine microalbumin ratio of 5 on 07/31/2023. Glucose 159 with hemoglobin A1c 7.6 on 02/05/2024. Glucose 159, hemoglobin A1c 7.2, urine microalbumin ratio of 6 with GFR 94 on 08/26/2024. Adenomatous colon polyp Repeat colonoscopy 08/12/2021 with 2 large polyps of the ascending colon with recheck in 4 months with colonoscopy.Two polyps on colonoscopy 01/13/2022 with recheck in 1 year.Colonoscopy 03/02/2023 with 2 polyps , tubular adenoma, recheck in 3 months. Colonoscopy 03/02/2023 with 2 tubular adenoma of the ascending colon. ascending colon with recheck in 3-4 months. Tubular adenoma Colon polyps 05/25/23 recheck 1 yr. Hypogonadism male Seborrhea Mixed hyperlipidemia Total cholesterol 105, triglycerides 108, HDL 39, LDL 47 on 11/28/2021. total cholesterol 103, HDL 35, triglycerides 113, LDL 48 on 12/29/2022. Cholesterol 115, triglycerides 137, HDL 39, LDL 76 with ratio 2.9 on 07/31/2023. Cholesterol 118, triglycerides 170, HDL 38, LDL 55 with ratio 3.1 on 02/05/2024. Cholesterol 94, triglycerides 136, HDL 34, LDL 38 with ratio 2.8 on 08/26/2024. Seasonal allergic rhinitis Essential (primary) hypertension Surgical History Surgical History History of heart artery stent Family History Family History Mother Hypertension, Onset Age: 91 Family history of cardiovascular disease Father Patient's father is , Onset Age: 87 Social History Social History Smoking packs per day: 2 Smoking cigarettes per day: 40.0 Smoking status: Former smoker Tobacco type: cigarettes Second hand tobacco smoke exposure: Yes Alcohol intake: never Substance use: former Substance use type: marijuana Last use: 1988 Do You Feel Safe in your Home?: Yes Lack of Transportation: No Lack of Food: Never True Current Housing: I Have Housing Concerned About Future Housing: No Difficulty Paying Gas/Electric Bills: No Difficulty Paying for Meds: No Currently Unemployed: No Education: Trade/Vocational Certificate Difficulty w/ Childcare or Family Care: No Living arrangements: with family Spiritual care concerns: No Anes - Eval Final PreProcedure Day of Procedure 10/06/24 06:56 Patient weight: obese Lungs: normal air movement Airway: Mallampati scale class II Neurological: alert and oriented Last oral intake: >/= 8 hours ASA classification: III Emergent: no Anesthetic plan: delay Anesthesia type and monitoring: general GIVS and standard monitoring Results Review: All pre-operative results and documents have been reviewed as part of the pre- operative evaluation. HTN, hyperlipidemia, DM fsbs 161, JENNIFER on CPAP. Informed Consent: The patient's anesthetic plan and its attendant risks and benefits were discussed with the patient/family/POA. Questions were solicited and answers provided to the satisfaction of the patient/family/POA.
--- NOTE | 2024-10-06 07:24 | P.HP_ITS ---
H&P: HPI History of Present Illness Date/Time: 10/06/24 07:24 Chief Complaint: History of colon polyps Narrative: The patient has a history of colonic polyps, the last colonoscopy was 2022, finding multiple polyps. There is no family history of colorectal cancer. Review of Systems Review of Systems: All systems reviewed & are unremarkable except as noted in HPI and below PMFSH Past Medical History Medical History Umbilical hernia without obstruction and without gangrene chronic 1 cm umbilical hernia Anxiety Skin tags, multiple acquired Chronic low back pain with right-sided sciatica x-ray of the lumbar spine on 08/15/2023 reveals chronic compression fracture of L3 with mild degenerative disc disease at L4-L5 with severe facet Arthritis bilaterally at L4-L5 and L5-S1. MRI of the lumbar spine on 02/15/2024 reveals moderate lumbar spondylosis with mild to moderate central canal stenosis and facet arthritis at L3-L4. Severe facet arthritis with neuroforaminal stenosis at L4-L5. At low risk for fall Chronic right hip pain mild osteoarthritis of both hips on x-ray 08/25/2023. Paronychia of great toe BMI 34.0-34.9,adult Gallstones Screening for diabetic retinopathy no retinopathy 09/29/2022. No retinopathy 10/15/2023. COVID-19 (06/14/22) tested positive 06/15/2022. Neoplasm of uncertain behavior of lip BMI 33.0-33.9,adult Obesity (BMI 30-39.9) Achilles tendinitis of left lower extremity Plantar fasciitis of left foot X-ray 09/21/2021 unremarkable except for small inferior calcaneal spur. Exposure to COVID-19 virus Otitis externa, fungal, left ear Chronic sinusitis PND (post-nasal drip) Otitis externa of left ear Impacted cerumen, bilateral Lateral epicondylitis BMI 35.0-35.9,adult Edema, peripheral Chronic right-sided low back pain without sciatica Nocturia Encounter for wellness examination in adult Encounter for prostate cancer screening PSA 0.78 on 07/31/2023. PSA 0.71 on 08/26/2024. Tension headache, chronic Obstructive sleep apnea on CPAP CPAP at 9 cm of water pressure with nasal pillows with CPAP titration on 10/05/2016. Coronary artery disease without angina pectoris Stent of the LAD Controlled diabetes mellitus, without long-term current use of insulin Glucose 122 with hemoglobin A1c 6.4 on 11/28/2021. Glucose 136 with hemoglobin A1c 6.4 on 12/29/2022. glucose 159 with hemoglobin A1c 6.9 with urine microalbumin ratio of 5 on 07/31/2023. Glucose 159 with hemoglobin A1c 7.6 on 02/05/2024. Glucose 159, hemoglobin A1c 7.2, urine microalbumin ratio of 6 with GFR 94 on 08/26/2024. Adenomatous colon polyp Repeat colonoscopy 08/12/2021 with 2 large polyps of the ascending colon with recheck in 4 months with colonoscopy.Two polyps on colonoscopy 01/13/2022 with recheck in 1 year.Colonoscopy 03/02/2023 with 2 polyps , tubular adenoma, recheck in 3 months. Colonoscopy 03/02/2023 with 2 tubular adenoma of the ascending colon. ascending colon with recheck in 3-4 months. Tubular adenoma Colon polyps 05/25/23 recheck 1 yr. Hypogonadism male Seborrhea Mixed hyperlipidemia Total cholesterol 105, triglycerides 108, HDL 39, LDL 47 on 11/28/2021. total cholesterol 103, HDL 35, triglycerides 113, LDL 48 on 12/29/2022. Cholesterol 115, triglycerides 137, HDL 39, LDL 76 with ratio 2.9 on 07/31/2023. Cholesterol 118, triglycerides 170, HDL 38, LDL 55 with ratio 3.1 on 02/05/2024. Cholesterol 94, triglycerides 136, HDL 34, LDL 38 with ratio 2.8 on 08/26/2024. Seasonal allergic rhinitis Essential (primary) hypertension Surgical History Surgical History History of heart artery stent Family History Family History Mother Hypertension, Onset Age: 91 Family history of cardiovascular disease Father Patient's father is , Onset Age: 87 Social History Social History Smoking packs per day: 2 Smoking cigarettes per day: 40.0 Smoking status: Former smoker Tobacco type: cigarettes Second hand tobacco smoke exposure: Yes Alcohol intake: never Substance use: former Substance use type: marijuana Last use: 1988 Do You Feel Safe in your Home?: Yes Lack of Transportation: No Lack of Food: Never True Current Housing: I Have Housing Concerned About Future Housing: No Difficulty Paying Gas/Electric Bills: No Difficulty Paying for Meds: No Currently Unemployed: No Education: Trade/Vocational Certificate Difficulty w/ Childcare or Family Care: No Living arrangements: with family Spiritual care concerns: No Meds Home Medications and Allergies Home Medications ?Medication ?Instructions ?Recorded ?Confirmed ?Type aspirin 81 mg tablet,delayed 81 mg PO DAILY 08/01/21 10/06/24 History release (Charles Low Dose Aspirin) multivitamin with minerals-folic 1 tablet PO DAILY 08/01/21 10/06/24 History acid 0.4 mg tablet blood-glucose meter (StardollTouch #1 ea 12/26/21 09/24/24 Rx Verio Meter) blood sugar diagnostic (StardollTouch #100 ea 02/17/22 09/24/24 Rx Verio test strips) lancets 33 gauge (JamLegend #100 ea 02/17/22 09/24/24 Rx Plus Lancet) lancing device with lancets kit #1 ea 02/17/22 09/24/24 Rx (JamLegend Lancing Device kit) amlodipine 5 mg tablet 5 mg PO DAILY #90 tabs 12/24/23 10/06/24 Rx irbesartan 300 1 tablet PO DAILY #90 tabs 06/12/24 09/24/24 Rx mg-hydrochlorothiazide 12.5 mg tablet acetaminophen 500 mg capsule 1,000 mg PO Q4-6H PRN pain 06/24/24 09/24/24 His tory empagliflozin 25 mg tablet 25 mg PO DAILY #100 tabs 09/10/24 09/24/24 Rx (Jardiance) terbinafine HCl 250 mg tablet 250 mg PO DAILY 09/22/24 10/06/24 History metformin 500 mg tablet,extended 500 mg PO BID 09/24/24 10/06/24 History release 24 hr atorvastatin 20 mg tablet 20 mg PO DAILY #90 tabs 09/29/24 10/06/24 Rx carvedilol 25 mg tablet 25 mg PO Q12H #180 tabs 09/29/24 10/06/24 Rx Allergies Allergy/AdvReac Type Severity Reaction Status Date / Time No Known Allergies Allergy Verified 09/29/24 08:02 Vital Signs Vital Signs - 24 hr 10/06/24 06:25 Temperature 97.5 F L Pulse Rate 61 Respiratory Rate 18 Blood Pressure 154/71 H Pulse Oximetry 98 Oxygen Delivery Room Air Exam Const: General: cooperative and healthy appearing Resp: Effort & Inspection: normal respiratory effort and able to speak in complete sentences Auscultation: clear to auscultation bilaterally Cardio: Rate: regular rate Rhythm: regular rhythm GI: Inspection: normal to inspection GI Palp: No No hepatosplenomegaly present Auscultation: normal bowel sounds Rectal Exam: deferred Skin: General skin exam: normal color Psych: Appearance: grossly normal Mental Status: mental status grossly normal Assessment and Plan Assessment and plan (1) Adenomatous colon polyp: Qualifiers: Colon location: unspecified part of colon Qualified Code(s): D12.6 - Benign neoplasm of colon, unspecified Code(s): D12.6 - Benign neoplasm of colon, unspecified Status: Acute Assessment and Plan: The patient is deemed a good candidate for the procedure. Consent signed. Will proceed.
[2024-10-06] MEDS: SIMETHICONE ORAL SUSPENSION 20 MG/0.3 ML 30 ML BOTTLE 0.6 ML IRRIGATION (07:37)
[2024-10-06 07:54] VITALS: BP 110/63; PULSE 60; RESP 18; O2SAT 93
[2024-10-06 08:04] VITALS: BP 112/66; PULSE 58; RESP 16; O2SAT 93
[2024-10-06 08:14] VITALS: BP 108/65; PULSE 55; RESP 19; O2SAT 96
== END 2024-10-06 08:24 | disposition home or self-care (01) ==
PROVIDERS: PCP Family Medicine; Referring Provider Internal Medicine Gastroenterology; Visit Provider Internal Medicine Gastroenterology
PROC: 0DJD8ZZ Inspection of Lower Intestinal Tract, Via Natural or Artificial Opening Endoscopic (ICD-10-PCS; CPT 45378; principal; 2024-10-06 07:30)
DX: Z12.11 Encounter for screening for malignant neoplasm of colon (principal); D12.3 Benign neoplasm of transverse colon; K57.30 Diverticulosis of large intestine without perforation or abscess without bleeding; K64.8 Other hemorrhoids; F41.9 Anxiety disorder, unspecified; G47.33 Obstructive sleep apnea (adult) (pediatric); Z99.89 Dependence on other enabling machines and devices; E11.9 Type 2 diabetes mellitus without complications; I25.10 Atherosclerotic heart disease of native coronary artery without angina pectoris; E78.2 Mixed hyperlipidemia; I10 Essential (primary) hypertension; Z87.891 Personal history of nicotine dependence; Z79.82 Long term (current) use of aspirin
CPT/HCPCS: 45385; 82948; 88305; J2704; J7120

== ENCOUNTER 2024-10-13 10:13 | Outpatient (CLI) | payer MEDICARE, SELFPAY ==
--- NOTE | 2024-10-13 10:27 | ECG_ITS ---
Test Date: 2024-10-13 10:33:20 Measurements Intervals Arena Rate: 61 P: 13 CA: 155 QRS: 61 QRSD: 84 T: 34 QT: 363 QTc: 368 Interpretive Statements SINUS RHYTHM WITHIN NORMAL LIMITS No previous ECG available for comparison Electronically Signed On 10-13-2024 15:43:25 CDT by Haim Sanders M.D.
--- OUTSIDE RECORDS SUMMARY | 2024-10-13 11:07 | XMS_ITS | Data Portability ---
Author Organization [facility] [employer], Main Office Address [address] [place] [address] Care Team Providers Care Rice Field Worker Name Role Phone KRISTY TREVINO Primary Care Provider IRIS, ANDREW Plant Biology Professor Unavailable IRIS, ANDREW Plant Biology Professor Unavailable Assessment No assessment recorded. Plan of [...] Time Body mass index 30+ - obesity 735084296 Active 2017 Not Available [facility] 3 18:53:34 Localized, primary osteoarthriti s 908041164 Active Not Available [facility] 3 18:53:35 Partial thickness rotator cuff tear 690760785 Active Not Available [facility] 3 18:53:35 Shoulder joint pain 765089758 Active Not Available [facility] 3 18:53:35 Hypertensive disorder 09472896 Active 2018 Not Available [facility] 3 18:53:35 Periodic limb movement disorder 435120562 Active 2017 Not Available [facility] 3 18:53:35 Obstructive sleep apnea syndrome 88860294 Active 2017 Not Available [facility] 3 18:53:35 Problem Notes None recorded. Medical Equipment None Reported. Allergies Allergen ID Allergen Name Allergen Category Reaction Reaction Severity Criticality Documentation Date Start Date Code Code System Note Provider Name and Address Organization Details Recorded Time 07614 Product containin g penicilli n (product) medicatio n Not available Not available Not available 08/09/2022 63915 8001 SNOMED Not Available [facility] 3 18:56:24 Medications Name Sig Start Date [...] % 98 % 51 /min 97.3 [degF] 577608. 95 g 118 mm[Hg] 52 mm[Hg] Not Available [facility] 3 18:53:14 Date Recorded Oxygen saturation Oxygen saturation in Arterial blood by Pulse oximetry Heart rate Body temperature Body weight Systolic blood pressure Diastolic blood pressure Provider Name and Address Organization Details Last Updated DateTime 2 97 % 97 % 60 /min 97.3 [degF] 23351.3 2 g 130 mm[Hg] 80 mm[Hg] Not Available [facility] 3 18:53:14 Date Recorded Body temperature Body height Body mass index (BMI) Body weight Heart rate Oxygen saturation Oxygen saturation in Arterial blood by Pulse oximetry Systolic blood pressure Diastolic blood pressure Provider Name and Address Organization Details Last Updated DateTime 3 97.2 [degF] 175.26 cm 33.7 kg/m2 452390. 06 g 64 /min 94 % 94 % 120 mm[Hg] 70 mm[Hg] Loreta Paulino MA [facility] 3 09:49:59 Date Recorded Body height Body mass index (BMI) Body weight Body temperature Heart rate Oxygen saturation Oxygen saturation in Arterial blood by Pulse oximetry Systolic blood pressure Diastolic blood pressure Provider Name and Address Organization Details Last Updated DateTime 3 175.26 cm 34.1 kg/m2 083560. 84 g 97.8 [degF] 58 /min 98 % 98 % 130 mm[Hg] 52 mm[Hg] Sendy Mckeon [facility] 3 12:04:59 Social History None recorded. Functional Status None recorded. Mental Status None recorded. Family History Nothing Reported. Medical History No medical history recorded. Immunizations Vaccine Type Date Status Note Provider Nam e and Address Organization Details Recorded Time Influenza, split virus, quadrivalent, preservative 0 completed Not Available [facility] 08/09/2022 18:56:21 Influenza, split virus, quadrivalent, PF 9 completed Not Available [facility] 08/09/2022 18:56:22 Influenza, split virus, quadrivalent, PF 8 completed Not Available [facility] 08/09/2022 18:56:22 Past Encounters Encounter ID Performer Location Encounter Start Date Encounter Closed Date Diagnosis/Indication Diagnosis SNOMED-CT Code Diagnosis ICD10 Code Diagnosis Note [id number] [facility] [address] [place] [address] 04/15/2021 00:00:00 04/15/2021 12:17:22 [id number] [facility] [address] [place] [address] 04/25/2022 00:00:00 04/25/2022 13:20:21 [id number] [facility] [address] [place] [address] 09/22/2022 09:42:05 09/22/2022 10:50:49 Obstructive sleep apnea syndrome 31039137 G47.33 2017 unattended home study with an AHI of 8.3.Titrat ion study 10/05/16 with an optimal titration of 9 cm water pressure.M achine set up 11/10/16Ne w machine set up operator ow nload today with 97% use greater [...] 3 months Periodic l imb movement disorder 529682748 G47.61 Overall limb movement index during CPAP titration study was 64.8.Labs were normalDecl sai medication s [id number] Maru Becker, LEGAL COMPLIANCE OFFICER-BC [facility] [address] [place] [address] 12/18/2022 11:48:20 12/18/2022 13:30:14 Obstructive sleep apnea syndrome 40761265 G47.33 2017 unattended home study with an AHI of 8.3.Titrat ion study 10/05/16 with an optimal titration of 9 cm water pressure.M achine set up 11/10/16Ne w machine set up operator 2Dow nload today with 100% use greater than [...] for concerns Periodic l imb movement disorder 989339452 G47.61 Overall limb movement index during CPAP [...] Richardson Member ID Guarantor Name 09/22/2022 1 [facility] (MEDICARE REPLACEMENT/A DVANTAGE - HMO) [id number] Thom Tse [id number] Thom Tse 12/18/2022 1 [facility] (MEDICARE REPLACEMENT/A DVANTAGE - HMO) [id number] Thom Tse [id number] Thom Tse Notes Date Note Type Note Provider Name and Address Organization Details Recorded Time 09/22/2022 text/html Thom presents michael hung to follow up on JENNIFER.He got a [...] discomfort - uses nasal pillows Maru Becker, LEGAL COMPLIANCE OFFICER-BC [address] [facility], [facility] [address], [place], [address], [facility] [employer] 09/22/2022 14:13:06 12/18/2022 text/html Thom presents t hung to follow up on JENNIFER.New CPAP in May 2022No changes to medications or symptoms over the last several monthsReports restful sleep most nights and wakes feeling well rested.Denies nocturia.No significant morning headaches, xerostomia or aerophagiaChronic sinus congestionHe did have a CT chest and was told he has a gallstone - he is considering surgery Maru Becker, LEGAL COMPLIANCE OFFICER-BC [address] [facility], [facility] [address], [place], [address], [place] [facility] 12/18/2022 15:05:42
--- OUTSIDE RECORDS SUMMARY | 2024-10-13 11:07 | XMS_ITS | Clinical Summary ---
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
== END 2024-10-13 10:14 | disposition home or self-care (01) ==
LOC: ANHCARD 10:16
PROVIDERS: PCP Family Medicine; Visit Provider Anesthesiology
DX: G47.33 Obstructive sleep apnea (adult) (pediatric) (principal); I25.10 Atherosclerotic heart disease of native coronary artery without angina pectoris; E11.9 Type 2 diabetes mellitus without complications; E78.2 Mixed hyperlipidemia; I10 Essential (primary) hypertension
CPT/HCPCS: 93005

== ENCOUNTER 2024-10-21 05:46 | Day surgery (SDC) | payer MEDICARE, SELFPAY ==
[2024-10-03 13:37] VITALS: BMI 35.1
[2024-10-07 10:42] VITALS: BMI 34.8
--- NOTE | ~2024-10-21 | XR_ITS ---
EXAMINATION: XR fluoroscopy no charge DATE: 10/21/2024 7:25 CDT INDICATION: THERMAL RADIOFREQ ABLATION MIGUEL L2,L3,L4,L5 MED BRANCH/DORSAL . TECHNIQUE: 11 fluoroscopic images of the lumbar spine were obtained during bilateral L2, L3, L4, and L5 medial branch/dorsal ramus thermal radiofrequency ablation, performed by Jackson Arana MD. I wa s not present during the procedure. Fluoroscopy exposure time was 124.3 seconds. Air Kerma 77.34 mGy. COMPARISON: None FINDINGS/IMPRESSION: Fluoroscopic documentation of bilateral L2, L3, L4, and L5 medial branch/dorsal ramus thermal radiofr equency ablation. Please refer to the operative note for complete procedural details . Reviewed, dictated and finalized at location K.
--- OUTSIDE RECORDS SUMMARY | 2024-10-21 06:04 | XMS_ITS | Clinical Summary ---
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
--- OUTSIDE RECORDS SUMMARY | 2024-10-21 06:04 | XMS_ITS | Continuity of Care Document ---
Author Organization [facility] Address [address] [place] [address] Phone Care Team Providers Care Inside Channel Account Manager Name Role Phone Administrative, Provider Unavailable Unavail able Procedures Procedure Date Independent Medical Examination MAXIMILIANO Medical Record Copy Medical Record Copy Per Page Affidavit Advance Directives Directive Yes / No Effective Date File Name No Information Encounters Encounter Description Practice Location Reason(s) For Visit Diagnoses Date Provider Providers Copied on Encounter Independent Medical Examination MAXIMILIANO [facility] [facility], [facility] [address], [id number], tel:[phone] [email or web address] Pain in left hand Administrative Provider. [address] [place] [address], [id number], [place]. tel:[phone] Referring Provider: Jackson Velasco, [address], [place], [address] . tel:[phone] [facility], [address] [place] [address], [id number], [place] tel:[phone] [facility] No Information Administrative Provider. [address] [place] [address], [id number], [place]. tel:[phone] Family History Family Member Type Diagnosis Age At Onset No Information Payers Payer name Insurance type Covered republican ID Meka bray(s) [employer] [id number] Social History Type Description Quantity Date Captured [...]
--- OUTSIDE RECORDS SUMMARY | 2024-10-21 06:04 | XMS_ITS | Data Portability ---
Author Organization [facility], Main Office Address [address] [place] [address] Care Team Providers Care Tip Scourer Name Role Phone KRISTY TREVINO Primary Care Provider [phone] IRIS, ANDREW Art Therapy Specialist Unavailable IRIS, ANDRWE Art Therapy Specialist Unavailable Assessment No assessment recorded. Plan of [...] Time Body mass index 30+ - obesity 542289873 Active 2017 Not Available [facility] 3 18:53:34 Localized, primary osteoarthriti s 964915614 Active Not Available [facility] 3 18:53:35 Partial thickness rotator cuff tear 522236419 Active Not Available [facility] 3 18:53:35 Shoulder joint pain 932354090 Active Not Available [facility] 3 18:53:35 Hypertensive disorder 00444203 Active 2018 Not Available [facility] 3 18:53:35 Periodic limb movement disorder 871263716 Active 2017 Not Available [facility] 3 18:53:35 Obstructive sleep apnea syndrome 88316723 Active 2017 Not Available [facility] 3 18:53:35 Problem Notes None recorded. Medical Equipment None Reported. Allergies Allergen ID Allergen Name Allergen Category Reaction Reaction Severity Criticality Documentation Date Start Date Code Code System Note Provider Name and Address Organization Details Recorded Time 34080 Product containin g penicilli n (product) medicatio n Not available Not available Not available 08/09/2022 83986 8001 SNOMED Not Available [facility] 3 18:56:24 Medications Name Sig Start [...] % 98 % 51 /min 97.3 [degF] 693737. 95 g 118 mm[Hg] 52 mm[Hg] Not Available [facility] 3 18:53:14 Date Recorded Oxygen saturation Oxygen saturation in Arterial blood by Pulse oximetry Heart rate Body temperature Body weight Systolic blood pressure Diastolic blood pressure Provider Name and Address Organization Details Last Updated DateTime 2 97 % 97 % 60 /min 97.3 [degF] 63387.3 2 g 130 mm[Hg] 80 mm[Hg] Not Available [facility] 3 18:53:14 Date Recorded Body temperature Body height Body mass index (BMI) Body weight Heart rate Oxygen saturation Oxygen saturation in Arterial blood by Pulse oximetry Systolic blood pressure Diastolic blood pressure Provider Name and Address Organization Details Last Updated DateTime 3 97.2 [degF] 175.26 cm 33.7 kg/m2 317956. 06 g 64 /min 94 % 94 % 120 mm[Hg] 70 mm[Hg] Loreta Paulino MA [facility] [employer] 3 09:49:59 Date Recorded Body height Body mass index (BMI) Body weight Body temperature Heart rate Oxygen saturation Oxygen saturation in Arterial blood by Pulse oximetry Systolic blood pressure Diastolic blood pressure Provider Name and Address Organization Details Last Updated DateTime 3 175.26 cm 34.1 kg/m2 918798. 84 g 97.8 [degF] 58 /min 98 % 98 % 130 mm[Hg] 52 mm[Hg] Sendy Mckeon [place] [employer] 3 12:04:59 Social History None recorded. Functional Status None recorded. Mental Status None recorded. Family History Nothing Reported. Medical History No medical history recorded. Immunizations Vaccine Type Date Status Note Provider Nam e and Address Organization Details Recorded Time Influenza, split virus, quadrivalent, preservative 0 completed Not Available [facility] 08/09/2022 18:56:21 Influenza, split virus, quadrivalent, PF 9 completed Not Available [facility] 08/09/2022 18:56:22 Influenza, split virus, quadrivalent, PF 8 completed Not Available [facility] 08/09/2022 18:56:22 Past Encounters Encounter ID Performer Location Encounter Start Date Encounter Closed Date Diagnosis/Indication Diagnosis SNOMED-CT Code Diagnosis ICD10 Code Diagnosis Note [id number] [facility] [place] [address] [place] [address] 04/15/2021 00:00:00 04/15/2021 12:17:22 [id number] [facility] [place] [address] [place] [address] 04/25/2022 00:00:00 04/25/2022 13:20:21 [id number] [facility] [place] [address] [place] [address] 09/22/2022 09:42:05 09/22/2022 10:50:49 Obstructive sleep apnea syndrome 83188189 G47.33 2017 unattended home study with an AHI of 8.3.Titrat ion study 10/05/16 with an optimal titration of 9 cm water pressure.M achine set up 11/10/16Ne w enrobing machine corder ow nload today with 97% use greater [...] 3 months Periodic l imb movement disorder 951866983 G47.61 Overall limb movement index during CPAP titration study was 64.8.Labs were normalDecl sai medication s [id number] Maru Becker, ANESTHESIA ATTENDING-BC [facility] [place] [address] [place] [address] 12/18/2022 11:48:20 12/18/2022 13:30:14 Obstructive sleep apnea syndrome 76805765 G47.33 2017 unattended home study with an AHI of 8.3.Titrat ion study 10/05/16 with an optimal titration of 9 cm water pressure.M achine set up 11/10/16Ne w enrobing machine corder 2Dow nload today with 100% use greater [...] for concerns Periodic l imb movement disorder 577675161 G47.61 Overall limb movement index during CPAP [...] Richardson Member ID Guarantor Name 09/22/2022 1 [facility] (MEDICARE REPLACEMENT/A DVANTAGE - HMO) [id number] Thom Tse [id number] Thom Tse 12/18/2022 1 [facility] (MEDICARE REPLACEMENT/A DVANTAGE - HMO) [id number] Thom Tse [id number] Thom Tse Notes Date Note Type Note [...] discomfort - uses nasal pillows Maru Becker, ANESTHESIA ATTENDING-BC [address] [facility], [facility] [address], [place], [address], [facility] [employer] 09/22/2022 14:13:06 12/18/2022 text/html Thom presents t [...] - he is considering surgery Maru Becker, ANESTHESIA ATTENDING-BC [address] [facility], [facility] [address], [place], [address], [place] [facility] 12/18/2022 15:05:42
[2024-10-21 06:16] VITALS: BP 137/73; PULSE 68; RESP 17; TEMP 36.9; O2SAT 96
[2024-10-21 06:33] LABS: Glucose Point of Care 150 mg/dl (65-105)
--- NOTE | 2024-10-21 07:01 | WPDANESEPPF ---
Anes - Initial Pre Proc Eval Procedure: Operation Date: 10/21/24 07:30 Proposed Procedures p Thermal Radiofrequency Ablation Bilateral L2, L3, L4, L5 Medial Branch/Dorsal Ramus Addressing Bilateral L3-4, L4-5, L5-S1 Facet Joints under Fluoroscopic Guidance with Contrast Control - Jackson Arana MD Date/Time: 10/21/24 07:01 Surgeon: Jackson Arana MD Pre Op Diagnosis: Lumbar Stenosis with Neurogenic Claudication Patient Data Age: 69 Gender: M Height: 1.75 m Weight: 105.3 kg Last Vital Signs Temp 36.9 C 10/21/24 06:16 Pulse 68 10/21/24 06:16 Resp 17 10/21/24 06:16 BP 137/73 10/21/24 06:16 Pulse Ox 96 10/21/24 06:16 O2 Del Method Room Air 10/21/24 06:16 Allergies Allergy/AdvReac Type Severity Reaction Status Date / Time No Known Allergies Allergy Verified 10/21/24 06:13 Home Medications ?Medication ?Instructions ?Recorded ?Confirmed ?Type aspirin 81 mg tablet,delayed 81 mg PO DAILY 08/01/21 10/21/24 History release (Charles Low Dose Aspirin) multivitamin with minerals-folic 1 tablet PO DAILY 08/01/21 10/21/24 History acid 0.4 mg tablet blood-glucose meter (OneTouch #1 ea 12/26/21 09/24/24 Rx Verio Meter) amlodipine 5 mg tablet 5 mg PO DAILY #90 tabs 12/24/23 10/21/24 Rx irbesartan 300 1 tablet PO DAILY #90 tabs 06/12/24 10/21/24 Rx mg-hydrochlorothiazide 12.5 mg tablet acetaminophen 500 mg capsule 1,000 mg PO Q4-6H PRN pain 06/24/24 10/21/24 History empagliflozin 25 mg tablet 25 mg PO DAILY #100 tabs 09/10/24 10/21/24 Rx (Jardiance) terbinafine HCl 250 mg tablet 250 mg PO DAILY 09/22/24 10/21/24 History metformin 500 mg tablet,extended 500 mg PO BID 09/24/24 10/21/24 History release 24 hr atorvastatin 20 mg tablet 20 mg PO DAILY #90 tabs 09/29/24 10/21/24 Rx carvedilol 25 mg tablet 25 mg PO Q12H #180 tabs 09/29/24 10/21/24 Rx blood sugar diagnostic (OneTouch #100 ea 10/09/24 Rx Verio test strips) lancets 33 gauge (OneTouch Delica #100 ea 10/09/24 Rx Plus Lancet) lancing device with lancets kit #1 ea 10/09/24 Rx Laboratory Tests 10/21/24 06:27 POC Capillary Glucose 150 H mg/dl (65-105) Patient hx anesthesia problems: none Family hx anesthesia problems: none Results Review: All pre-operative results and documents have been reviewed as part of the pre-operative evaluation. [facility] Past Medical History Medical History Umbilical hernia without obstruction and without gangrene chronic 1 cm umbilical hernia Anxiety Skin tags, multiple acquired Chronic low back pain with right-sided sciatica x-ray of the lumbar spine on 08/15/2023 reveals chronic compression fracture of L3 with mild degenerative disc disease at L4-L5 with severe facet Arthritis bilaterally at L4-L5 and L5-S1. MRI of the lumbar spine on 02/15/2024 reveals moderate lumbar spondylosis with mild to moderate central canal stenosis and facet arthritis at L3-L4. Severe facet arthritis with neuroforaminal stenosis at L4-L5. At low risk for fall Chronic right hip pain mild osteoarthritis of both hips on x-ray 08/25/2023. Paronychia of great toe BMI 34.0-34.9,adult Gallstones Screening for diabetic retinopathy no retinopathy 09/29/2022. No retinopathy 10/15/2023. COVID-19 (06/14/22) tested positive 06/15/2022. Neoplasm of uncertain behavior of lip BMI 33.0-33.9,adult Obesity (BMI 30-39.9) Achilles tendinitis of left lower extremity Plantar fasciitis of left foot X-ray 09/21/2021 unremarkable except for small inferior calcaneal spur. Exposure to COVID-19 virus Otitis externa, fungal, left ear Chronic sinusitis PND (post-nasal drip) Otitis externa of left ear Impacted cerumen, bilateral Lateral epicondylitis BMI 35.0-35.9,adult Edema, peripheral Chronic right-sided low back pain without sciatica Nocturia Encounter for wellness examination in adult Encounter for prostate cancer screening PSA 0.78 on 07/31/2023. PSA 0.71 on 08/26/2024. Tension headache, chronic Obstructive sleep apnea on CPAP CPAP at 9 cm of water pressure with nasal pillows with CPAP titration on 10/05/2016. Coronary artery disease without angina pectoris Stent of the LAD Controlled diabetes mellitus, without long-term current use of insulin Glucose 122 with hemoglobin A1c 6.4 on 11/28/2021. Glucose 136 with hemoglobin A1c 6.4 on 12/29/2022. glucose 159 with hemoglobin A1c 6.9 with urine microalbumin ratio of 5 on 07/31/2023. Glucose 159 with hemoglobin A1c 7.6 on 02/05/2024. Glucose 159, hemoglobin A1c 7.2, urine microalbumin ratio of 6 with GFR 94 on 08/26/2024. Adenomatous colon polyp Repeat colonoscopy 08/12/2021 with 2 large polyps of the ascending colon with recheck in 4 months with colonoscopy.Two polyps on colonoscopy 01/13/2022 with recheck in 1 year.Colonoscopy 03/02/2023 with 2 polyps , tubular adenoma, recheck in 3 months. Colonoscopy 03/02/2023 with 2 tubular adenoma of the ascending colon. 2 small polyps transverse colon on 10/06/2024 with recheck in 5 years. ascending colon with recheck in 3-4 months. Tubular adenoma Colon polyps 05/25/23 recheck 1 yr.Two tubular adenomas The transverse colon on colonoscopy 10/06/2024 with repeat in 5 years. Hypogonadism male Seborrhea Mixed hyperlipidemia Total cholesterol 105, triglycerides 108, HDL 39, LDL 47 on 11/28/2021. total cholesterol 103, HDL 35, triglycerides 113, LDL 48 on 12/29/2022. Cholesterol 115, triglycerides 137, HDL 39, LDL 76 with ratio 2.9 on 07/31/2023. Cholesterol 118, triglycerides 170, HDL 38, LDL 55 with ratio 3.1 on 02/05/2024. Cholesterol 94, triglycerides 136, HDL 34, LDL 38 with ratio 2.8 on 08/26/2024. Seasonal allergic rhinitis Essential (primary) hypertension Surgical History Surgical History History of heart artery stent Family History Family History Mother Hypertension, Onset Age: 91 Family history of cardiovascular disease Father Patient's father is , Onset Age: 87 Social History Social History Smoking packs per day: 2 Smoking cigarettes per day: 40.0 Years smoked: 20 Smoking pack-years: 40.00 Smoking status: Former smoker Tobacco type: cigarettes Second hand tobacco smoke exposure: Yes Alcohol intake: never Drinks per week: 6 Substance use: former Substance use type: marijuana Last use: 1988 Do You Feel Safe in your Home?: Yes Lack of Transportation: No Lack of Food: Never True Current Housing: I Have Housing Concerned About Future Housing: No Difficulty Paying Gas/Electric Bills: No Difficulty Paying for Meds: No Currently Unemployed: No Education: Trade/Vocational Certificate Difficulty w/ Childcare or Family Care: No Living arrangements: with family Spiritual care concerns: No Anes - Eval Final PreProcedure Day of Procedure 10/21/24 07:01 Patient weight: obese Heart: regular rate and rhythm Lungs: clear to auscultation Airway: Mallampati scale class II Neurological: alert and oriented Last oral intake: >/= 8 hours ASA classification: III Emergent: no Anesthetic plan: proceed Anesthesia type and monitoring: general GIVS and standard monitoring Results Review: All pre-operative results and documents have been reviewed as part of the pre-operative evaluation. Informed Consent: The patient's anesthetic plan and its attendant risks and benefits were discussed with the patient/family/POA. Questions were solicited and answers provided to the satisfaction of the patient/family/POA.
--- NOTE | 2024-10-21 07:12 | WPDHPUPDATE1 ---
History and Physical Update Update Date/Time: 10/21/24 07:12 History and Physical has been reviewed, including an updated exam of the patient. There are NO changes in the patient's condition. Risks, benefits, and alternatives have been discussed and questions answered. Patient agrees to proceed with procedure.
--- NOTE | 2024-10-21 07:13 | P.OP_ITS ---
Procedure Note - Detailed Date of Procedure 10/21/24 Pre-op Diagnosis Lumbosacral spondylosis, chronic low back pain Post-op Diagnosis Same Procedure Performed Thermal Radiofrequency Ablation of the bilateral Lumbar Medial Branches/Dorsal Ramus at the L2, L3, L4, L5 Levels Treating the bilateral L3-4, L4-5, L5-S1 Facet Joints Under Fluoroscopic Guidance (6 Levels Treated). Surgeon Jackson Arana MD Horticultural [employer] None. Anesthesia Local (w/ MAC) Description of Procedure INFORMED CONSENT: Risks, benefits and alternatives to the procedure were discussed in detail with the patient who expressed explicit understanding and consent to proceed. Patient was informed verbally and in written form regarding the risks associated with the procedure including the low risk of serious infection, bleeding/bruising, allergic reaction, nerve or organ injury, paralysis, procedural site pain or discomfort, worsening pain and/or mobility, failure to treat and/or disfigurement. The patient expressed explicit understanding and consent to proceed. All materials required for the procedure were available prior to procedure start. Site and side were marked prior to procedure and confirmed in the presence of the patient. PROCEDURE IN DETAIL: The patient was brought to the procedural suite and placed in the prone position. Patient was made comfortable with use of pillows under the head/chest, hips and ankles. ASA standard monitors were applied and used throughout the procedure. Skin overlying the injection site on the affected side(s) was prepared broadly with ChloraPrep applicator and draped in a sterile manner. Aseptic technique was used throughout. The endplates of the vertebral bodies at the site(s) of interest were aligned in the AP view. Ipsilateral oblique angulation was utilized to optimize visualization of the intersection between the superior articulating process and transverse process at each target site. Local anesthesia was established by infiltration with approximately 5 mL of 1% lidocaine via a 1-1/2 inch 27-gauge needle divided over each site treated. A 16-gauge 150 mm [employer] RF needle with curved 10mm active tip was advanced in the AP view until the needle tip contacted the periosteum at the target site, the right L2 medial branch. Lateral view was utilized to adjust and confirm the appropriate placement of the needle tip just anterior to the facet line, superior to the pedicle and posterior to the foramen. Grounding electrode was in place and functioning. The appropriately-sized RF cannula was inserted into the RF needle and motor stimulation was performed with no subjective or objective evidence of recruited muscle activity with stimulation up to 2.0 volts at a frequency of 2Hz. 1.5 mL of 2.0% PF lidocaine was injected after negative aspiration. After a 90s pause, lesioning was performed to 90 degrees centigrade for 90s ensuring lack of symptoms in the extremity throughout. Needle was rotated 180 degrees and lesioning repeated in a similar manner. Patient tolerated this well. No parasthesias were elicited. Needle was removed completely intact without difficulty. The same procedure was repeated for all intended levels/ structures on the ipsilateral side, right L3, L4, L5 medial branches/dorsal ramus with identical methodology, modified to compensate for new location, with similar results and no evidence of complication. The same exact procedure was repeated for all remaining levels on the contralateral side, left L2, L3, L4, L5 medial branches/dorsal ramus, modified as necessary to accommodate for the new target location with identical findings/results and no evidence of complication. Images were saved and documented in the patient chart. Patient's skin was cleansed and sterile bandage applied. The patient tolerated the procedure well. The patient was transported to the recovery area in stable condition where they were observed for an appropriate amount of time prior to discharge, without evidence of complication. The patient was instructed to avoid excessive activity for the next 48 hours, including climbing and frequent use of stairs. Showers only for 48 hours. They were instructed not to drive or operate heavy machinery for 24 hours. They are to monitor for severe headaches, fevers, chills, night sweats, erythema/swelling at the site or any other signs of infection, bleeding/bruising, bowel or bladder changes as well as new pain, weakness or numbness in the upper or lower extremity. Should they notice these changes, they are instructed to call our office immediately or report directly to the nearest Emergency Department if no answer or if after posted office hours. COMPLICATIONS: None COMMENTS: None Complications No immediate complications Condition Stable Disposition PACU [facility] Billing Surgery - Charge Forward: Surgery Billing
[2024-10-21] MEDS: LACTATED RINGERS 1,000 ML 150 ML IV CONT (07:15)
[2024-10-21 08:03] VITALS: BP 103/58; PULSE 66; RESP 16; O2SAT 96
[2024-10-21] MEDS: LIDOCAINE 2% PF LOCAL INJ 5 ML VIAL 15 ML INFILTRATE (08:03)
[2024-10-21] MEDS: BUPivacaine HCL 0.5% 10 ML AMP 5 ML INFILTRATE (08:03)
[2024-10-21] MEDS: LIDOCAINE 1% PF INJ 5 ML VIAL INFILTRATE (08:04)
--- NOTE | 2024-10-21 08:14 | WPDANESPN ---
Anes - Prog Note Post-Op Date/Time: 10/21/24 08:14 Cardiovascular status: normal Respiratory status: normal Airway patency: baseline Mental status: baseline Post-Op hydration status: normal Vital Signs: Last Vital Signs Temp 36.9 C 10/21/24 06:16 Pulse 66 10/21/24 08:03 Resp 16 10/21/24 08:03 BP 103/58 L 10/21/24 08:03 Pulse Ox 96 10/21/24 08:03 O2 Del Method Room Air 10/21/24 08:03 Pain Score (VAS): 0/10 10/21/24 06:27 POC Capillary Glucose 150 H Patient Feedback: Patient satisfied with anesthetic care.
[2024-10-21 08:30] VITALS: BP 118/66; PULSE 59; RESP 18; O2SAT 97
[2024-10-21 08:44] LABS: Glucose Point of Care 135 mg/dl (65-105)
== END 2024-10-21 08:50 | disposition home or self-care (01) ==
PROVIDERS: PCP Family Medicine; Visit Provider Anesthesiology Pain Medicine
PROC: (CPT 64635; principal; 2024-10-21 07:30)
DX: M47.817 Spondylosis without myelopathy or radiculopathy, lumbosacral region (principal)
CPT/HCPCS: 64635; 64636 ×5; 99199

== ENCOUNTER 2024-12-10 15:58 | Outpatient (CLI) | payer MEDICARE, SELFPAY ==
--- NOTE | ~2024-12-10 | CT_ITS ---
CT abdomen pelvis wo con Ordering provider: Morris Barnes MD History: 69 years Male with . Left flank pain . Comparison: None. Technique: CT abdomen and pelvis without IV and without oral contrast. Automated exposure control and iterative reconstruction technique were employed. The dose-length product was 509.53 mGy-cm. Findings: VISUALIZED LOWER CHEST: Dependent atelectatic changes. UPPER ABDOMINAL ORGANS: Liver: Normal. Gallbladder: Cholelithiasis. Spleen: Normal. Stomach/duodenum: Normal. Pancreas: Atrophic. Adrenals: 8mm adenoma is seen in the right adrenal. No follow-up advised unless clinically warranted. Kidneys: Normal. PELVIC ORGANS: Minimal thickening of the wall anteriorly is seen. Otherwise, The bladder is normal. BOWEL AND MESENTERY: Colon: No evidence of diverticulitis. Fecal material is loaded in the colon suggestive of constipatio n. Normal appendix. Small Bowel: Normal. No obstruction. Peritoneum/mesentery: No free air or free fluid. No mesenteric lymphadenopathy. RETROPERITONEUM: Mild atheromatous disease of the abdominal aorta. No retroperitoneal lymphadenopat hy. MUSCULOSKELETAL: Superficial soft tissues: Small fat-containing umbilical hernia. Otherwise, The superficial soft tiss ues are normal. Bones: Age appropriate degenerative changes of the spine. Bilateral hip osteoarthritic changes. IMPRESSION: 1. No evidence of appendicitis, diverticulitis or intestinal obstruction. No renal stones. 2. Cholelithiasis. 3. Tiny right adrenal adenoma. No follow-up advised. 4. Small fat-containing umbilical hernia. 5. Constipation. Reviewed, dictated and finalized at location A. IMPRESSION: 1. No evidence of appendicitis, diverticulitis or intestinal obstruction. No r enal stones. 2. Cholelithiasis. 3. Tiny right adrenal adenoma. No follow-up advised. 4. Small fat-containing umbilical hernia. 5. Constipation.
--- OUTSIDE RECORDS SUMMARY | 2024-12-10 16:01 | XMS_ITS | Continuity of Care Document ---
Author Organization [facility] Address [address] [place] [address] Phone Care Team Providers Care Software Consultant Name Role Phone Administrative, Provider Unavailable Unavail able Procedures Procedure Date Independent Medical Examination MAXIMILIANO Medical Record Copy Medical Record Copy Per Page Affidavit Advance Directives Directive Yes / No Effective Date File Name No Information Encounters Encounter Description Practice Location Reason(s) For Visit Diagnoses Date Provider Providers Copied on Encounter Independent Medical Examination MAXIMILIANO [email or web address], [facility] [address], [id number], tel:[phone] [email or web address] Pain in left hand Administrative Provider. [address] [place] [address], [id number], [place]. tel:[phone] Referring Provider: Jackson Velasco, [address] [facility] [facility] [address], [place], [address] . tel:[phone] [email or web address], [address] [place] [address], [id number], [place] tel:[phone] [email or web address] No Information Administrative Provider. [address] [place] [address], [id number], [place]. tel:[phone] Family History Family Member Type Diagnosis Age At Onset No Information Payers Payer name Insurance type Covered libertarian ID Meka bray(s) [employer] [id number] Social History Type Description Quantity Date Captured [...]
--- OUTSIDE RECORDS SUMMARY | 2024-12-10 16:01 | XMS_ITS | Clinical Summary ---
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
== END 2024-12-10 15:59 | disposition home or self-care (01) ==
PROVIDERS: PCP Family Medicine; Visit Provider Family Medicine
DX: K80.20 Calculus of gallbladder without cholecystitis without obstruction (principal); D35.01 Benign neoplasm of right adrenal gland; K42.9 Umbilical hernia without obstruction or gangrene; K59.00 Constipation, unspecified
CPT/HCPCS: 74176